=== PATIENT | male | born 1940 | race Caucasian/White ===

== ENCOUNTER 2020-01-21 15:08 | Outpatient (CLI) | payer OTHER, SELFPAY ==
--- NOTE | 2020-01-21 15:14 | CT_ITS ---
WS: [id number] CT LUMBAR SPINE TECHNIQUE: Noncontrast CT of the lumbar spine with coronal and sagittal reformatted images. CLINICAL INFORMATION: LOW BACK PAIN COMPARISON: CT November 20, 2016 DLP: 2026.[address] scans at [facility] use at least one of these dose optimization techniques: automat ed exposure control; mA and/or kV adjustment per patient size (includes targeted exams where dose is matched to clinical indication); or iterative reconstruction. FINDINGS: Lumbar scoliosis. No acute compression. Disc space narrowing worse at L1-2 and L4-5. Vacuum disc phen omenon L4-5. Degenerative disc disease at L4-5 has progressed since November 20, 2016. L1-L2: Disc space narrowing with endplate degenerative changes. Narrowing of the left subarticular re cess. Moderate facet arthropathy. Foramen are patent. L2-L3: Mild annular bulging. Moderate facet arthropathy with mild central canal stenosis. Foramen are patent. L3-L4: Mild disc bulging and osteophytic ridging. Moderate to severe central canal stenosis with impi ngement on the traversing L4 nerve roots bilaterally. Mild left and no significant right foraminal na rrowing. Moderate to advanced facet arthropathy with ligamentum flavum hypertrophy. L4-L5: Mild disc bulging in combination with facet arthropathy and ligament flavum hypertrophy result s in moderate central canal stenosis. Impingement traversing right L5 nerve root. Large right foramin al disc protrusion impinges the exiting L4 nerve root with filling of the right neural foramen. Sever e right foraminal narrowing. Left foramen is patent. Impingement traversing right L5 nerve root. L5-S1: Mild annular bulging with slight effacement of ventral thecal sac. Slight impingement left S1 nerve root. Mild left and no significant right foraminal narrowing. Moderate facet arthropathy. Visualized pelvic bony structures: Normal. Paravertebral soft tissues: Normal. CT/CT lumbar spine wo con* [id number] IMPRESSION: 1. Prominent right L4-5 foraminal protrusion with severe right foraminal narro wing and impingement on exiting right L4 nerve root. Recommend correlation for right L4 nerve root symptoms. Additional impingement traversing L5 nerve root. These findings are new compared to 2017. 2. Moderate to severe central canal stenosis L3-4 due to disc bulging with fac et arthropathy and ligament flavum hypertrophy. This is relatively stable since 2017. 3. Moderate central canal stenosis L4-5. 4. Moderate to advanced facet arthropathy L3-L4 and L4-L5. 5. Left eccentric disc bulging L5-S1 slightly impinges the traversing left S1 nerve root in the subarticular recess. This is slightly progressed since 2017.
== END 2020-01-21 15:09 | disposition home or self-care (01) ==
LOC: RADWPI 15:12
PROVIDERS: Family Provider Family Medicine; PCP Family Medicine; Visit Provider Family Medicine
DX: M51.26 Other intervertebral disc displacement, lumbar region (principal); M48.061 Spinal stenosis, lumbar region without neurogenic claudication; M47.816 Spondylosis without myelopathy or radiculopathy, lumbar region; M51.27 Other intervertebral disc displacement, lumbosacral region
CPT/HCPCS: 72131

== ENCOUNTER → 2020-05-22 15:20 | Outpatient (BNVA) | payer MEDICARE, BC, SELFPAY | PROVIDERS: Family Provider Family Medicine; PCP Family Medicine; Visit Provider Internal Medicine Cardiovascular Disease | DX: I25.5 Ischemic cardiomyopathy (principal); I25.10 Atherosclerotic heart disease of native coronary artery without angina pectoris | CPT/HCPCS: 80048; 83880 ==

== ENCOUNTER → 2021-08-29 10:36 | Outpatient (BNVA) | payer MEDICARE, BC, SELFPAY | PROVIDERS: Family Provider Family Medicine; PCP Family Medicine; Visit Provider Internal Medicine Cardiovascular Disease | DX: I25.5 Ischemic cardiomyopathy (principal); I11.0 Hypertensive heart disease with heart failure; I50.20 Unspecified systolic (congestive) heart failure; I50.33 Acute on chronic diastolic (congestive) heart failure; R06.01 Orthopnea; I48.20 Chronic atrial fibrillation, unspecified; Z95.810 Presence of automatic (implantable) cardiac defibrillator; E78.2 Mixed hyperlipidemia; E11.65 Type 2 diabetes mellitus with hyperglycemia; I25.10 Atherosclerotic heart disease of native coronary artery without angina pectoris | CPT/HCPCS: 80048; 83880; 99214 ==

== ENCOUNTER → 2021-10-18 13:14 | Outpatient (BNVA) | payer OTHER, SELFPAY | PROVIDERS: Family Provider Family Medicine; PCP Family Medicine; Visit Provider Nurse Practitioner Family | DX: I25.5 Ischemic cardiomyopathy (principal); I10 Essential (primary) hypertension | CPT/HCPCS: 36415; 80048; 83880; 99213 ==

== ENCOUNTER → 2021-11-02 10:03 | Outpatient (BNVA) | payer OTHER, SELFPAY | PROVIDERS: Family Provider Family Medicine; PCP Family Medicine; Visit Provider Internal Medicine Cardiovascular Disease | DX: Z45.02 Encounter for adjustment and management of automatic implantable cardiac defibrillator (principal) | CPT/HCPCS: 93284 ==

== ENCOUNTER → 2021-11-06 09:23 | Outpatient (BNVA) | payer OTHER, SELFPAY | PROVIDERS: Family Provider Family Medicine; PCP Family Medicine; Visit Provider Nurse Practitioner Family | DX: I25.5 Ischemic cardiomyopathy (principal) | CPT/HCPCS: 99213; 99214 ==

== ENCOUNTER → 2021-12-03 11:12 | Outpatient (BNVA) | payer OTHER, SELFPAY | PROVIDERS: Family Provider Family Medicine; PCP Family Medicine; Visit Provider Internal Medicine Cardiovascular Disease | DX: I25.10 Atherosclerotic heart disease of native coronary artery without angina pectoris (principal); I25.5 Ischemic cardiomyopathy; I10 Essential (primary) hypertension; I48.20 Chronic atrial fibrillation, unspecified; Z95.810 Presence of automatic (implantable) cardiac defibrillator; E78.2 Mixed hyperlipidemia; E11.65 Type 2 diabetes mellitus with hyperglycemia; Z95.1 Presence of aortocoronary bypass graft; Z79.84 Long term (current) use of oral hypoglycemic drugs | CPT/HCPCS: 99214 ==

== ENCOUNTER → 2022-04-08 09:52 | Outpatient (BNVA) | payer OTHER, SELFPAY | PROVIDERS: Family Provider Family Medicine; PCP Family Medicine; Visit Provider Internal Medicine Cardiovascular Disease | DX: I25.5 Ischemic cardiomyopathy (principal); I25.10 Atherosclerotic heart disease of native coronary artery without angina pectoris; Z95.1 Presence of aortocoronary bypass graft; I10 Essential (primary) hypertension; I48.20 Chronic atrial fibrillation, unspecified; Z79.01 Long term (current) use of anticoagulants; Z95.810 Presence of automatic (implantable) cardiac defibrillator; E78.2 Mixed hyperlipidemia; E11.65 Type 2 diabetes mellitus with hyperglycemia; Z79.84 Long term (current) use of oral hypoglycemic drugs | CPT/HCPCS: 99214 ==

== ENCOUNTER 2022-05-07 13:54 | Outpatient (CLI) | payer OTHER, SELFPAY ==
--- NOTE | 2022-05-07 13:45 | USCV_ITS ---
Roshan Sourav Age: 82 Gender: M : 1940 Exam Date: 05/07/2022 14:43 Ordering Phys: Lorena Madrigal MD ([email or web address]) Technologist: Buzz Hickman Exam Location: [facility] [place] Indication: cardiomyopathy BP: 122 / 70 HR: 61 Rhythm: Sinus Technical Quality: Adequate MEASUREMENTS (Male / Female) Normal Values 2D ECHO LV Diastolic Diameter PLAX 4.2 cm 4.2 - 5.9 / 3.9 - 5.3 cm LV Systolic Diameter PLAX 3.4 cm IVS Diastolic Thickness 0.7 cm 0.6 - 1.0 / 0.6 - 0.9 cm IVS Systolic Thickness 0.5 cm LVPW Diastolic Thickness 0.8 cm 0.6 - 1.0 / 0.6 - 0.9 cm LVPW Systolic Thickness 1.1 cm LVOT Diameter 2.0 cm LV Ejection Fraction 2D Teich 39.3 % LV Ejection Fraction MOD 2C 33.0 % LV Ejection Fraction 2C AL 31.5 % LA Diameter 3.6 cm LA Width 3.5 cm LA Height 5.0 cm RA Width 3.4 cm RA Height 5.2 cm Aorta at Sinotubular Diameter 2.6 cm IVC Diameter 1.7 cm M-MODE Aortic Annulus Diameter 2.9 cm LA Ao Ratio MM 1.4 MV E Point Septal Separation 0.8 cm DOPPLER AV Peak Velocity 90.0 cm/s LVOT Peak Velocity 76.0 cm/s AV Area Cont Eq vti 2.6 cm squared AV Area Cont Eq pk 2.7 cm squared MV Peak Velocity 122.0 cm/s MV Area PHT 7.1 cm squared Mitral E to A Ratio 2.1 MV E' Velocity 38.2 cm/s Mitral E to MV E' Ratio 6.6 Mitral E to LV E' Lateral Ratio 5.7 Mitral E to LV E' Septal Ratio 8.1 TR Peak Velocity 320.5 cm/s TR Peak Gradient 41.1 mmHg TR Mean Velocity 242.4 cm/s TR Mean Gradient 25.8 mmHg TR Velocity Time Integral 84.4 cm Right Atrial Pressure 3.0 mmHg Pulmonary Artery Systolic Pressu 44.1 mmHg PV Peak Velocity 89.3 cm/s RV Acceleration Time 0.1 s RV Ejection Time 0.3 s RV AcT/ET 0.3 FINDINGS Left Ventricle Normal LV size with diminished ejection fraction of 33%. Severe diffuse hypokinesia of the LV apex. Moderate hypokinesia of the mid and apical septum and the anteroseptal segments. Right Ventricle The right ventricle, upper limit of normal size. Slightly diminished right ventricular ejection fraction.catheter/pacemaker wire in the right ventricular cavity. Right Atrium Mildly increased right atrial size. Catheter/pacemaker wire in the right atrial appendage. Left Atrium The left atrium is normal in size. Mitral Valve Thickened mitral valve. Trace mitral valve regurgitation. Aortic Valve Thickened aortic valve. Trace aortic valve regurgitation. Tricuspid Valve Moderate tricuspid valve regurgitation. Estimated pulmonary artery peak systolic pressure of 44 mmHg Pulmonic Valve Pulmonic valve not well visualized. Pericardium No pericardial effusion. Aorta Normal ascending aorta dimension. IVC Normal inferior vena cava. CONCLUSIONS Normal LV size with diminished ejection fraction of 33%. Multiple wall motion normalities as mentioned above. Thickened mitral valve. Trace mitral valve regurgitation. Thickened aortic valve. Trace aortic valve regurgitation. Moderate tricuspid valve regurgitation. Estimated pulmonary artery peak systolic pressure of 44 mmHg. There is no pericardial effusion. Pacemaker/ICD wire was noted in the right atrium and right ventricle Compared to the study from 09/17/2018, there is some improvement in the LV ejection fraction Dr Lorena Madrigal MD FAC (Electronically Signed) Final Date: 09 May 2022 00:01 S
== END 2022-05-07 13:55 | disposition home or self-care (01) ==
LOC: RAD 13:59
PROVIDERS: PCP Family Medicine; Visit Provider Internal Medicine Cardiovascular Disease
DX: I25.5 Ischemic cardiomyopathy (principal); I42.0 Dilated cardiomyopathy; R06.09 Other forms of dyspnea; Z95.0 Presence of cardiac pacemaker
CPT/HCPCS: 93306

== ENCOUNTER 2022-05-27 10:54 | Oncology outpatient (recurring) (ONCR) | payer OTHER, SELFPAY ==
[2022-05-27 12:37] LABS: Basophils % 0.4 %; Eosinophils # 0.1 10^3/uL (0.0-0.8); Eosinophils % 1.8 %; Hematocrit 30.1 % (42.0-52.0); Hemoglobin 10.3 g/dL (11.7-16.6); Lymphocytes # 1.1 10^3/uL (0.8-4.8); Lymphocytes % 40.1 %; Mean Corpuscular HGB Conc 34.2 g/dL (30.0-36.0); Mean Corpuscular Hemoglobin 34.6 pg (28.0-34.0); Mean Platelet Volume 9.7 fL (7.4-10.4); Monocytes # 0.2 10^3/uL (0.2-0.9); Monocytes % 5.4 %; Neutrophils # 1.46 10^3/uL (1.8-7.7); Neutrophils % 52.3 %; Nucleated Red Blood Cells % 0 %; Platelet Count 34 10^3/cmm (130-400); Red Blood Count 2.98 10^6/uL (4.1-5.3); Red Cell Distribution Width 13.9 % (12.1-15.1); White Blood Count 2.8 10^3/uL (4.0-10.0)
[2022-05-27 12:42] LABS: LAB Peripheral Smear Sent for Review
[2022-05-27 13:02] LABS: Alanine Aminotransferase 9 U/L (0-41); Albumin Level 4.8 g/dL (3.5-5.2); Alkaline Phosphatase 53 U/L (40-130); Aspartate Amino Transferase 18 U/L (0-40); Blood Urea Nitrogen 11 mg/dL (8-23); Calcium 10.2 mg/dL (8.5-10.5); Carbon Dioxide 27 mmol/L (22-29); Chloride 98 mmol/L (98-107); Ferritin 248 ng/mL (30-400); Globulin 3.1 g/dL (1.3-4.6); Glucose 107 mg/dL (65-115); Iron 125 ug/dL (59-158); Lactate Dehydrogenase 184 U/L (135-225); Osmolality Calculated 276 mOsm/kg (285-295); Percent Saturation 43.1 % (20-50); Sodium 133 mmol/L (136-145); Total Bilirubin 0.4 mg/dL (0.15-1.2); Total Iron Binding Capacity 290 mcg/dl; Total Protein 7.9 g/dL (6.6-8.7); Unsaturated Iron Binding 165 ug/dL (112-347)
[2022-05-27 13:16] LABS: Vitamin B12 268 pg/mL (232-1245)
[2022-05-27 13:55] LABS: Folate Level > 20.0 ng/mL (4.5-32.2)
[2022-05-28 12:25] LABS: PROTEIN, TOTAL 7.6 g/dL (6.1-8.1)
[2022-05-28 12:50] LABS: KAPPA LIGHT CHAIN, FREE, SERUM 25.8 mg/L (3.3-19.4); KAPPA/LAMBDA LIGHT CHAINS FREE 1.32 (0.26-1.65); LAMBDA LIGHT CHAIN, FREE, SERU 19.6 mg/L (5.7-26.3)
[2022-05-28 15:19] LABS: ALBUMIN 4.6 g/dL (3.8-4.8); ALPHA 1 GLOBULIN 0.3 g/dL (0.2-0.3); ALPHA 2 GLOBULIN 0.8 g/dL (0.5-0.9); BETA 1 GLOBULIN 0.5 g/dL (0.4-0.6); BETA 2 GLOBULIN 0.5 g/dL (0.2-0.5)
[2022-05-30 19:29] LABS: Methylmalonic Acid 227 nmol/L (87-318)
== END 2022-06-15 23:59 | disposition home or self-care (01) ==
PROVIDERS: PCP Family Medicine; Visit Provider Internal Medicine Medical Oncology
DX: D64.9 Anemia, unspecified (principal); Z86.010 Personal history of colon polyps; Z87.11 Personal history of peptic ulcer disease; K59.09 Other constipation; D61.818 Other pancytopenia; R35.0 Frequency of micturition; R35.1 Nocturia
CPT/HCPCS: 36415; 80053; 82607; 82728; 82746; 83540; 83550; 83615; 83883; 83921; 84155; 84165; 85025; 99205

== ENCOUNTER → 2022-06-21 09:15 | Outpatient (BNVA) | payer OTHER, SELFPAY | PROVIDERS: PCP Family Medicine; Visit Provider Internal Medicine Cardiovascular Disease | DX: Z45.02 Encounter for adjustment and management of automatic implantable cardiac defibrillator (principal) | CPT/HCPCS: 93284 ==

== ENCOUNTER 2022-06-24 10:22 | Day surgery (SDC) | payer OTHER, SELFPAY ==
[2022-06-20 08:45] VITALS: BMI 24.0
[2022-06-24 10:46] VITALS: BP 161/79; PULSE 79; RESP 18; TEMP 36.1; O2SAT 99
[2022-06-24] MEDS: sodium chloride 0.9% 1,000 ML 30 ML IV (10:51)
[2022-06-24 10:58] LABS: Glucose Point of Care 129 mg/dL (70-110)
[2022-06-24 11:03] LABS: Eosinophils % 1.7 %; Hematocrit 28.6 % (42.0-52.0); Hemoglobin 9.7 g/dL (11.7-16.6); Lymphocytes # 0.9 10^3/uL (0.8-4.8); Lymphocytes % 39.4 %; Mean Corpuscular HGB Conc 33.9 g/dL (30.0-36.0); Mean Corpuscular Hemoglobin 35.9 pg (28.0-34.0); Mean Corpuscular Volume 105.9 fl (80-94); Mean Platelet Volume 9.9 fL (7.4-10.4); Monocytes # 0.2 10^3/uL (0.2-0.9); Monocytes % 6.4 %; Neutrophils # 1.24 10^3/uL (1.8-7.7); Neutrophils % 52.5 %; Nucleated Red Blood Cells % 0 %; Platelet Count 31 10^3/cmm (130-400); Red Cell Distribution Width 14.4 % (12.1-15.1); White Blood Count 2.4 10^3/uL (4.0-10.0)
--- NOTE | 2022-06-24 11:09 | P.ANESASSM_ITS ---
Pre-Anesthetic Assessment Height/Weight: Height 1.8 m Weight 78.018 kg Temp Pulse Resp BP Pulse Ox O2 Del Method 97.0 F L 79 18 161/79 99 06/24/22 10:46 06/24/22 10:46 06/24/22 10:46 06/24/22 10:46 06/24/22 10:46 06/24/22 10:46 Operation Date: 06/24/22 12:00 Proposed Procedures p Bone Marrow Biospy With Aspiration(Not Applicable) - Chhaya Strauss MD Familial anesthetic complications: None Last intake: Intake Last Liquid Date 06/23/22 Last Liquid Time 20:00 Last Solid Date 06/23/22 Last Solid Time 20:00 Social Alcohol (3-4 oz red wine nightly) quit smoking Airway Mallampati: Class II Dentition: other (no teeth) Pulmonary pulm HTN 44 mgHg, down from 81 mmHg CV/HEM Atrial Fibrillation, Anemia, Coronary Artery Disease (cabg), Hypertension and Myocardial Infarction ischemic cardiomyopathy EF 33% on 05/07 echo Pacer/defibrillator Metabolic Diabetes Mellitus and Hyperlipidemia leukopenia, thrombocytopenia Musc/skel Osteoarthritis/DJD Anesthetic Plan ASA status: 4 Anesthesia: MAC Risk of > 500 ml blood loss (7ml/kg in children): No Medications/Allergies Home Medications Medication Instructions Recorded Confirmed Last Taken Type aspirin 81 mg tablet,delayed 81 mg PO DAILY 11/17/19 06/24/22 06/19/22 History release (Adult Low Dose Aspirin) cholecalciferol (vitamin D3) 50 50 mcg PO DAILY 11/17/19 06/24/22 06/22/22 History mcg (2,000 unit) capsule dorzolamide 22.3 mg-timolol 6.8 1 drop ophthalmic (eye) BID 11/17/19 06/24/22 06/22/22 History mg/mL eye drops magnesium oxide 250 mg PO DAILY 11/17/19 06/24/22 06/22/22 History multivitamin 1 tab PO DAILY 11/17/19 06/24/22 06/22/22 History omega-3 fatty acids 1,000 mg 1,000 mg PO DAILY 11/17/19 06/24/22 06/22/22 History capsule (Fish Oil Concentrate) pantoprazole 40 mg tablet,delayed 40 mg PO DAILY 11/17/19 06/24/22 06/22/22 History release travoprost 0.004 % eye drops 1 drp ophthalmic (eye) DAILY 11/17/19 06/24/22 06/22/22 History (Travatan Z) garlic 1,000 mg capsule (garlic 1,000 mg PO DAILY 05/22/20 06/24/22 06/22/22 History oil) lutein 20 mg capsule 20 mg PO DAILY 05/22/20 06/24/22 06/22/22 History metoprolol tartrate 25 mg tablet 12.5 mg PO DAILY 05/22/20 06/24/22 06/22/22 History hydrocodone 5 mg-acetaminophen 325 1 tab PO BID PRN Pain 07/24/20 06/24/22 06/22/22 History mg tablet ([place]) meloxicam 15 mg tablet 15 mg PO DAILY 07/24/20 06/24/22 06/22/22 History metformin 500 mg tablet 500 mg PO DAILY 07/24/20 06/24/22 06/22/22 History sertraline 100 mg tablet 100 mg PO DAILY 07/24/20 06/24/22 06/22/22 History potassium gluconate 600 mg (99 mg) 600 mg PO DAILY 01/22/21 06/24/22 06/22/22 History tablet spironolactone 25 mg tablet 25 mg PO DAILY #90 tabs 12/31/21 06/24/22 06/22/22 Rx donepezil 5 mg tablet 2.5 mg PO DAILY 05/27/22 06/24/22 06/22/22 History sacubitril 24 mg-valsartan 26 mg 1 tab PO DAILY 05/27/22 06/24/22 06/22/22 History tablet (Entresto) simvastatin 5 mg tablet 5 mg PO DAILY 05/27/22 06/24/22 06/22/22 History Allergies Allergy/AdvReac Type Severity Reaction Status Date / Time atorvastatin AdvReac Unknown muscle Verified 06/24/22 10:45 cramps rivaroxaban [From Xarelto] AdvReac Unknown GI bleed Verified 06/24/22 10:45 Current Medications Generic Name Dose Route Start Last Admin Trade Name Freq PRN Reason Stop Dose Admin Sodium Chloride 1,000 mls @ 30 mls/hr 06/24/22 10:45 06/24/22 10:51 Sodium Chloride 0.9% IV 06/25/22 10:44 30 mls/hr .Q24H GALLITO Administration PFSH Anesthesia Medical History (Updated 05/27/22 @ 18:45 by Amadou Baker MD) Atrial fibrillation CAD (coronary artery disease) Cardiomyopathy Chronic atrial fibrillation Degenerative arthritis Degenerative joint disease of spine Dementia Depression Fibromyalgia Glaucoma Hx of colonic polyps Hx of myocardial infarction Hyperlipidemia Hypertension Pulmonary hypertension Type 2 diabetes mellitus Surgical History (Updated 05/27/22 @ 18:33 by Amadou Baker MD) Biventricular ICD (implantable cardioverter-defibrillator) in place History of open sigmoidectomy Hx of CABG Hx of cholecystectomy S/P cataract extraction and insertion of intraocular lens Family History Brother CAD (coronary artery disease) Family/Other Diabetes Other Hypertension Denies family history of Clotting disorder Dementia Chronic kidney disease (CKD) Suicide Anesthesia complication Bleeding disorder Lung disease Cancer Stroke Social History Smoking and tobacco status: never smoked Alcohol intake: never Data Anesthesia 06/24/22 10:58 Short CBC 06/24/22 Range/Units 10:58 WBC 2.4 L (4.0-10.0) 10^3/uL Hgb 9.7 L (11.7-16.6) g/dL Hct 28.6 L (42.0-52.0) % MCV 105.9 H (80-94) fl Plt Count 31 L (130-400) 10^3/cmm Neut % (Auto) 52.5 % Neut # (Auto) 1.24 L (1.8-7.7) 10^3/uL Cardiac Studies: Echocardiogram 05/07/22
--- NOTE | 2022-06-24 12:10 | W.PM.OPSUD ---
Surgery/Procedure H&P Update DATE OF PROCEDURE: June 24, 2022 DATE H&P PERFORMED: 05/27/22 CHANGES TO PREVIOUS DOCUMENTATION: Patient seen and examined, no new symptoms or no obvious changes since his last visit to the clinic PRIMARY INDICATION FOR PROCEDURE: Pancytopenia PLANNED PROCEDURE: Operation Date: 06/24/22 12:00 Proposed Procedures p Bone Marrow Biospy With Aspiration(Not Applicable) - Chhaya Strauss MD
--- NOTE | 2022-06-24 12:35 | P.PCN_ITS ---
Bone Marrow Biopsy Bone Marrow Biopsy: I was consulted by [] office regarding bone marrow biopsy on [Sourav hubbard]. Briefly, the patient is a [82] year old [Male] with [Pancytopenia]. In the Outpatient Services Department, with nursing staff and laboratory technologists in attendance, the procedure was discussed with the patient. Appropriate consent form had been signed. Appropriate alternatives, benefits and risks of procedure were discussed with the patient and he was pre- operatively assessed with a history and physical by myself and cleared for the biopsy procedure. The patient did request IV sedation and that was provided by the Anesthesia Department. Under aseptic condition right posterior iliac area was cleaned and prepped, local anesthesia was given, about 15 cc of bone marrow aspirate and core biopsy was obtained, hemostasis was obtained patient tolerated procedure well, specimen was sent for routine histopathology, cytogenetics/flow cytometry and FISH MDS and heme next generation. Postprocedure nursing instructions were given Thank you for allowing me to participate in this patient's care and diagnosis. Coding Level of Care Code Acute Associate Artistic Director for Chg Fwd History Problem Focused Exam Problem Focused Medical Decision Making Straight Forward
[2022-06-24 12:38] VITALS: BP 110/60; PULSE 70; RESP 16; TEMP 36.1; O2SAT 100
[2022-06-24 13:31] VITALS: BP 122/73; PULSE 76; RESP 18; O2SAT 98
--- NOTE | 2022-06-24 13:40 | ANE.PACU2 ---
Inpatient post-anesthesia follow up: Airway intact: Yes Vital signs: Temperature 97 F Pulse Rate 76 Respiratory Rate 18 Blood Pressure 122/73 Pulse Oximetry 98 Oxygen Delivery Me thod Room Air Oxygen Flow Rate Fraction of Inspir ed Oxygen Hydration adequate: Yes Nausea and vomiting: No Pain level: 1 Mental status: Baseline
[2022-06-25 16:12] LABS: Leukemia Profile (BBPL) See Report; Lymphoma Profile (BBPL) See Report
[2022-07-02 16:16] LABS: MDS Panel (BBPL) See Report
[2022-07-03 11:25] LABS: Chromosome Analysis BBPL See Report
== END 2022-06-24 13:45 | disposition home or self-care (01) ==
PROVIDERS: PCP Family Medicine; Visit Provider Internal Medicine Hematology & Oncology
PROC: 07DT3ZX Extraction of Bone Marrow, Percutaneous Approach, Diagnostic (ICD-10-PCS; CPT 38222; principal; 2022-06-24 12:00)
DX: D61.818 Other pancytopenia (principal); I48.91 Unspecified atrial fibrillation; I25.10 Atherosclerotic heart disease of native coronary artery without angina pectoris; Z95.1 Presence of aortocoronary bypass graft; I10 Essential (primary) hypertension; I25.2 Old myocardial infarction; Z95.0 Presence of cardiac pacemaker; Z79.82 Long term (current) use of aspirin; E11.9 Type 2 diabetes mellitus without complications; E78.5 Hyperlipidemia, unspecified
CPT/HCPCS: 36415; 36416; 38222; 82962; 85025; 88184; 88185; 88237; 88264; 88291; 88305; 88311; 88367; 88374; J2704; J3010; J7030

== ENCOUNTER 2022-07-15 09:59 | Oncology outpatient (recurring) (ONCR) | payer OTHER, SELFPAY | END 2022-07-16 23:59 | disposition home or self-care (01) | LOC: ONCMED 09:59 | PROVIDERS: PCP Family Medicine; Visit Provider Internal Medicine Medical Oncology | DX: D46.22 Refractory anemia with excess of blasts 2 (principal) | CPT/HCPCS: 99215 ==

== ENCOUNTER → 2022-07-19 08:37 | Outpatient (BNVA) | payer OTHER, SELFPAY | PROVIDERS: PCP Family Medicine; Visit Provider Internal Medicine Cardiovascular Disease | DX: Z45.02 Encounter for adjustment and management of automatic implantable cardiac defibrillator (principal) | CPT/HCPCS: 93284 ==

== ENCOUNTER → 2022-08-19 08:12 | Outpatient (BNVA) | payer OTHER, SELFPAY | PROVIDERS: PCP Family Medicine; Visit Provider Nurse Practitioner Family | DX: D46.22 Refractory anemia with excess of blasts 2 (principal) | CPT/HCPCS: 99214 ==

== ENCOUNTER → 2022-08-30 08:31 | Outpatient (BNVA) | payer OTHER, SELFPAY | PROVIDERS: PCP Family Medicine; Visit Provider Nurse Practitioner | DX: D46.22 Refractory anemia with excess of blasts 2 (principal) | CPT/HCPCS: 99214 ==

== ENCOUNTER 2022-09-11 07:41 | Inpatient (IN) | payer OTHER, SELFPAY ==
[2022-09-11] VITALS (25 sets, daily range): BP systolic 115–149; BP diastolic 55–76; PULSE 70–96; RESP 13–23; TEMP 36.2–36.8; O2SAT 84–98; BMI 23.0
--- NOTE | 2022-09-11 07:46 | XR_ITS ---
WS: [id number] Exam: XR chest 1V portable [id number] Date/Time of Exam: 09/11/2022 7:55 AM Reason For Exam: dyspnea/cough Comparison 12/10/2013. There are diffuse airspace and interstitial infiltrates throughout both lungs. Mild cardiac enlargeme nt. No pneumothorax or pleural effusion. A permanent cardiac pacer superimposes the left chest. Signs of previous CABG surgery. The mediastinum is normal in contour. Bony structures are intact. Advanced DJD of the right shoulder. XR/XR chest 1V portable [id number] IMPRESSION: 1. Diffuse airspace and interstitial infiltrates throughout both lung coffman. T his probably represents pneumonia however acute pulmonary edema could have this appearance. 2. Mild cardiac enlargement.
[2022-09-11 08:05] LABS: Hematocrit 24.3 % (42.0-52.0); Lymphocytes # 0.2 10^3/uL (0.8-4.8); Lymphocytes % 63.6 %; Mean Corpuscular HGB Conc 32.9 g/dL (30.0-36.0); Mean Corpuscular Hemoglobin 32.9 pg (28.0-34.0); Mean Platelet Volume 9.8 fL (7.4-10.4); Monocytes % 12.1 %; Neutrophils % 24.3 %; Nucleated Red Blood Cells % 0 %; Platelet Count 153 10^3/cmm (130-400); Red Blood Count 2.43 10^6/uL (4.1-5.3); Red Cell Distribution Width 16.8 % (12.1-15.1)
--- NOTE | 2022-09-11 08:06 | ECG_ITS ---
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 Measurements Intervals [place] Rate: 107 P: 0 ID: 0 QRS: -77 QRSD: 141 T: 100 QT: 428 QTc: 573 Interpretive Statements ELECTRONIC VENTRICULAR PACEMAKER ABNORMAL RHYTHM ECG No previous ECG available for comparison Possible underlying atrial flutter Electronically Signed On 09-11-2022 23:52:13 CDT by Lorena Madrigal M.D. [email or web address]
--- NOTE | 2022-09-11 08:26 | ED_ITS ---
HPI - Fever General: Chief Complaint: ER Hold Stated Complaint: FEVER/ DEHYDRATION Time Seen by Provider: 09/11/22 07:43 Source: patient Mode of arrival: EMS History of Present Illness: 82-year-old male with a history of myelodysplastic with blasts presents to the emergency room reporting having had a fever this morning at home. He has been seen [facility] they are planning on restarting some treatments recently his ANC has been as low as 200 and he has been on ciprofloxacin empirically. He did receive a single hydrocodone tablet this morning prior to coming in when he arrived here he is afebrile. He denies any abdominal pain chest pain or shortness of breath no dysuria urgency or frequency. He has not had any diarrhea. MD elicited complaint: fever Exacerbating factors: nothing Relieving factors: nothing Associated symptoms: Reports chills; Deny abdominal pain, flank pain, chest pain, confusion, cough, diarrhea, dysuria, extremity pain, headache(s), myalgias, nasal congestion, nausea, night sweats, rash, rhinorrhea, short of breath, sinus pain, stiffness, sore throat, vaginal discharge, vomiting or weight loss Treatments prior to arrival fever: none Review of Systems Const: Reports: fever(s), chills, fatigue and malaise; Denies: night sweats ENMT: Denies: nasal congestion or sinus pain Card: Denies: chest pain, palpitations, irregular heart rhythm or edema Resp: Denies: dyspnea, productive cough or non-productive cough GI: Denies: abdominal pain, nausea, vomiting or diarrhea : Denies: flank pain, dysuria, urinary frequency or urinary urgency Musc: Denies: extremity pain Skin/Breast: Denies: rash or pruritus Neuro: Denies: headache(s) or confusion PFS ED PFSH: Medical History Atrial fibrillation CAD (coronary artery disease) Cardiomyopathy Chronic atrial fibrillation Degenerative arthritis Degenerative joint disease of spine Dementia Depression Fibromyalgia Glaucoma Hx of colonic polyps Hx of myocardial infarction Hyperlipidemia Hypertension Myelodysplastic syndrome Pulmonary hypertension Type 2 diabetes mellitus Surgical History Biventricular ICD (implantable cardioverter-defibrillator) in place History of open sigmoidectomy Hx of CABG Hx of cholecystectomy S/P cataract extraction and insertion of intraocular lens Family History Brother CAD (coronary artery disease) Family/Other Diabetes Other Hypertension Denies family history of Clotting disorder Dementia Chronic kidney disease (CKD) Suicide Anesthesia complication Bleeding disorder Lung disease Cancer Stroke Social History Smoking and tobacco status: never smoked Alcohol intake: never Physical Exam Const: GENERAL APPEARANCE: cooperative and comfortable ORIENTATION/CONSCIOUSNESS: Yes awake, Yes oriented to person, Yes oriented to place and Yes oriented to time HENMT: COMMON NORMALS: normocephalic, atraumatic and hearing grossly normal bilaterally HEAD & SCALP: normocephalic and atraumatic Resp: COMMON NORMALS: normal respiratory effort, No retractions, No use of accessory muscles and clear to auscultation bilaterally AUSCULTATION: clear to auscultation bilaterally Cardio: COMMON NORMALS: regular rate, regular rhythm and No murmurs present (Cardio) RATE: regular rate RHYTHM: regular rhythm GI: COMMON NORMALS: Soft to palpation and No hepatosplenomegaly present AUS CULTATION: Yes normoactive bowel sounds PALPATION: Yes Soft to palpation, No Tenderness to palpation present (GI), No Guarding due to palpation present (GI) and Yes No hepatosplenomegaly present Extremity: COMMON NORMALS: normal to inspection, capillary refill normal, no clubbing, cyanosis or edema, no calf tenderness and no pedal edema Neuro: SENSORIUM/ORIENTATION: Yes oriented to person, Yes oriented to place and Yes oriented to time Skin: COMMON NORMALS: no rashes or lesions noted GENERAL SKIN EXAM: no rashes or lesions noted Course Vital Signs: Vital signs: Vital Signs Temperature 98.0 F 09/11/22 12:00 Pulse Rate 70 09/11/22 12:00 Respiratory Rate 17 09/11/22 12:00 Blood Pressure 126/57 09/11/22 12:00 Pulse Oximetry 98 09/11/22 12:00 Oxygen Delivery Me thod 09/11/22 12:34 MDM - Fever Medical Decision Making Mild dysplastic syndrome with concern for conversion to leukemia. Reviewing oncology notes Dr. Baker had indicated there really was not much else that we did not think he be a candidate for any kind other treatments he is more neutropenic today than he was he is running a fever looks like he may have an infiltrate now. Discussed with Dr. La who also consulted Dr. Howard Baker. At this point will admit with Abby Pedraza will add antifungals. Patient room prefers to be Do Not Recussitate. Orders written for admission. Medical Records I reviewed the patient's medical records. Lab Data I reviewed the patient's lab results. 09/11/22 07:32 Radiology Impressions Chest X-Ray 09/11/22 07:46 IMPRESSION: 1. Diffuse airspace and interstitial infiltrates throughout both lung coffman. This probably represents pneumonia however acute pulmonary edema could have this appearance. 2. Mild cardiac enlargement. Laboratory Results WBC 0.3 10^3/uL (4.0-10.0) L* 09/11/22 07:32 RBC 2.43 10^6/uL (4.1-5.3) L 09/11/22 07:32 Hgb 8.0 g/dL (11.7-16.6) L 09/11/22 07:32 Hct 24.3 % (42.0-52.0) L 09/11/22 07:32 MCV 100.0 fl (80-94) H 09/11/22 07:32 MCH 32.9 pg (28.0-34.0) 09/11/22 07:32 MCHC 32.9 g/dL (30.0-36.0) 09/11/22 07:32 RDW 16.8 % (12.1-15.1) H 09/11/22 07:32 Plt Count 153 10^3/cmm (130-400) 09/11/22 07:32 MPV 9.8 fL (7.4-10.4) 09/11/22 07:32 Neut % (Auto) 24.3 % 09/11/22 07:32 Lymph % (Auto) 63.6 % 09/11/22 07:32 Stark % (Auto) 12.1 % 09/11/22 07:32 Eos % (Auto) 0.0 % 09/11/22 07:32 Baso % (Auto) 0.0 % 09/11/22 07:32 Neut # (Auto) 0.08 10^3/uL (1.8-7.7) L* 09/11/22 07:32 Lymph # (Auto) 0.2 10^3/uL (0.8-4.8) L 09/11/22 07:32 Stark # (Auto) 0.0 10^3/uL (0.2-0.9) L 09/11/22 07:32 Eos # (Auto) 0.0 10^3/uL (0.0-0.8) 09/11/22 07:32 Baso # (Auto) 0.0 10^3/uL (0.0-0.1) 09/11/22 07:32 Nucleated RBC % (auto) 0 % 09/11/22 07:32 Nucleated RBCs # 0.0 /100WBC 09/11/22 07:32 Sodium 139 mmol/L (136-145) 09/11/22 07:32 Potassium 3.2 mmol/L (3.5-5.1) L 09/11/22 07:32 Chloride 102 mmol/L (98-107) 09/11/22 07:32 Carbon Dioxide 23 mmol/L (22-29) 09/11/22 07:32 Anion Gap 17.2 (5-19) 09/11/22 07:32 BUN 21 mg/dL (8-23) 09/11/22 07:32 Creatinine 0.7 mg/dL (0.7-1.2) 09/11/22 07:32 GFR Calculation Not Reportable 09/11/22 07:32 Glucose 174 mg/dL (65-115) H 09/11/22 07:32 Calculated Osmolality 295 mOsm/kg (285-295) 09/11/22 07:32 Calcium 9.3 mg/dL (8.5-10.5) 09/11/22 07:32 Magnesium 1.9 mg/dL (1.7-2.3) 09/11/22 07:32 Total Bilirubin 0.5 mg/dL (0.15-1.2) 09/11/22 07:32 AST 25 U/L (0-40) 09/11/22 07:32 ALT 17 U/L (0-41) 09/11/22 07:32 Alkaline Phosphatase 53 U/L (40-130) 09/11/22 07:32 Total Protein 6.8 g/dL (6.6-8.7) 09/11/22 07:32 Albumin 3.3 g/dL (3.5-5.2) L 09/11/22 07:32 Globulin 3.5 g/dL (1.3-4.6) 09/11/22 07:32 TSH 0.53 uIU/mL (0.27-4.20) 09/11/22 07:32 Coronavirus 229E (PCR) Not detected (NOT DETECT) 09/11/22 10:46 Influenza Type A Ag negative (Negative) 09/11/22 10:46 Influenza Type B Ag negative (Negative) 09/11/22 10:46 SARS-CoV-2 (PCR) Not detected (NOT DETECT) 09/11/22 10:46 Discharge Plan Discharge Patient Disposition: Admitted As Inpatient Admit Provider: Nitish Pedraza Clinical Impression: Pneumonia, Anemia, Pancytopenia, Diabetes, Myelodysplastic syndrome with excess blasts-2, Fever and neutropenia Condition: Stable Coding Level of Care Code ED Principal Cyber Engineer for Tiffany Arce
[2022-09-11 08:31] LABS: Alanine Aminotransferase 17 U/L (0-41); Albumin Level 3.3 g/dL (3.5-5.2); Alkaline Phosphatase 53 U/L (40-130); Anion Gap 17.2 (5-19); Aspartate Amino Transferase 25 U/L (0-40); Blood Urea Nitrogen 21 mg/dL (8-23); Calcium 9.3 mg/dL (8.5-10.5); Carbon Dioxide 23 mmol/L (22-29); Chloride 102 mmol/L (98-107); Globulin 3.5 g/dL (1.3-4.6); Glucose 174 mg/dL (65-115); Osmolality Calculated 295 mOsm/kg (285-295); Potassium 3.2 mmol/L (3.5-5.1); Sodium 139 mmol/L (136-145); Total Bilirubin 0.5 mg/dL (0.15-1.2); Total Protein 6.8 g/dL (6.6-8.7)
[2022-09-11 08:35] LABS: Neutrophils # 0.08 10^3/uL (1.8-7.7); White Blood Count 0.3 10^3/uL (4.0-10.0)
[2022-09-11 08:37] LABS: Slide Review Slide Review Perform
[2022-09-11] MEDS: vancomycin 1,000 MG in sodium chloride 0.9% 250 ML 250 MG IV (08:56)
--- NOTE | 2022-09-11 09:39 | PC.PHAR ---
pt and pts verified pts medication-pts states the pt is not taking venetoclax right now-pts states the pt is taking the cipro 500mg bid dose at the moment-pts states the pt is taking the medications entered faxed [facility] to get med list-notes are made in the pharmacy comments
[2022-09-11] MEDS: potassium chloride ER 20 mEq Tablet 40 MEQ PO (10:05)
[2022-09-11] MEDS: cefTAZidime 1,000 MG in sodium chloride 0.9% (plus) 50 ML 150 MG IV (10:08)
--- NOTE | 2022-09-11 10:16 | PM.HP ---
Providers/Chief Complaint Primary Care Provider: Mari Avitia MD Chief Complaint: FEVER/ DEHYDRATION History of Present Illness Sourav Islas Sr is a 82 year old male with underlying MDS with unfavorable characteristics who recently underwent treatment on August 19 with initiation of azacitidine and venetoclax presented to the emergency department with generalized weakness, temperature of 100.5. He had been instructed by oncology should the temperature reached this degree with his pancytopenia that he might have systemic infection. He has not really been coughing. He reports he feels occasional shortness of breath. No vomiting or diarrhea. No chest pain or abdominal pain. No headache or neck pain. Reports he has not been eating or drinking as well as he just does not feel like it. He has been on Cipro and acyclovir prophylactically. He does not have a port. Additional history was given by his . Review of Systems General: Reports: 10 or more systems reviewed and unremarkable except in HPI and below Card: Denies: chest pain Resp: Reports: dyspnea; Denies: productive cough or non-productive cough GI: Denies: abdominal pain, nausea, vomiting, hematochezia or melena Medications/Allergies Home Medications Medication Instructions Recorded Confirmed Last Taken Type dorzolamide 22.3 mg-timolol 6.8 1 drop ophthalmic (eye) BID 11/17/19 09/11/22 06/22/22 History mg/mL eye drops magnesium oxide 250 mg PO QPM 11/17/19 09/11/22 06/22/22 History multivitamin 1 tab PO QPM 11/17/19 09/11/22 06/22/22 History pantoprazole 40 mg tablet,delayed 40 mg PO QAM 11/17/19 09/11/22 06/22/22 History release travoprost 0.004 % eye drops 1 drp ophthalmic (eye) BEDTIME 11/17/19 09/11/22 06/22/22 History (Travatan Z) garlic 1,000 mg capsule (garlic 1,000 mg PO QPM 05/22/20 09/11/22 06/22/22 History oil) metoprolol tartrate 25 mg tablet 12.5 mg PO QPM 05/22/20 09/11/22 06/22/22 History meloxicam 15 mg tablet 15 mg PO DAILY PRN Pain 07/24/20 09/11/22 06/22/22 History sertraline 100 mg tablet 100 mg PO QAM 07/24/20 09/11/22 06/22/22 History donepezil 5 mg tablet 5 mg PO QPM 05/27/22 09/11/22 06/22/22 History sacubitril 24 mg-valsartan 26 mg 1 tab PO QAM 05/27/22 09/11/22 06/22/22 History tablet (Entresto) acyclovir 400 mg tablet 400 mg PO BID #60 tabs 08/19/22 09/11/22 Unknown Rx lorazepam 1 mg tablet 0.5 - 1 mg PO Q6H PRN Severe 08/19/22 09/11/22 Unknown Rx Nausea #30 tabs hydrocodone 7.5 mg-acetaminophen 2 tab PO Q4H PRN pain 20 days #60 09/02/22 09/11/22 09/11/22 06:30 Rx 325 mg tablet tabs 2 tabs ondansetron HCl 4 mg tablet 4 mg PO Q6H PRN nausea and 09/09/22 09/11/22 Unknown Rx vomiting #30 tabs venetoclax 100 mg tablet See Rx Instructions PO DAILY #51 09/10/22 09/11/22 Unknown Rx tabs cholecalciferol (vitamin D3) 125 125 mcg PO QPM 09/11/22 09/11/22 Unknown History mcg (5,000 unit) tablet (Vitamin D3) ciprofloxacin HCl 500 mg tablet 500 mg PO BID 09/11/22 09/11/22 Unknown History diphenhydramine HCl 25 mg capsule 25 - 50 mg PO .EVERY 4-6 HOURS PRN 09/11/22 09/11/22 Unknown History (Benadryl) Itching lutein 20 mg-zeaxanthin 1,000 mcg 1 cap PO DAILY@12 09/11/22 09/11/22 Unknown History capsule metformin 1,000 mg tablet 500 mg PO QAM 09/11/22 09/11/22 Unknown History omega-3 fatty acids 1,000 mg 1,000 mg PO QPM 09/11/22 09/11/22 Unknown History capsule potassium gluconate 595 mg (99 mg) 99 mg PO DAILY@12 09/11/22 09/11/22 Unknown History tablet simvastatin 10 mg tablet (Zocor) 5 mg PO QPM 09/11/22 09/11/22 Unknown History spironolactone 25 mg tablet 25 mg PO QAM 09/11/22 09/11/22 Unknown History Allergies Allergy/AdvReac Type Severity Reaction Status Date / Time prochlorperazine Allergy ADR-Itching Verified 09/11/22 09:26 [From Compazine] atorvastatin AdvReac Unknown muscle Verified 09/11/22 09:26 cramps rivaroxaban [From Xarelto] AdvReac Unknown GI bleed Verified 09/11/22 09:26 PFSH Acute PFSH: Medical History Atrial fibrillation CAD (coronary artery disease) Cardiomyopathy Chronic atrial fibrillation Degenerative arthritis Degenerative joint disease of spine Dementia Depression Fibromyalgia Glaucoma Hx of colonic polyps Hx of myocardial infarction Hyperlipidemia Hypertension Myelodysplastic syndrome Pulmonary hypertension Type 2 diabetes mellitus Surgical History Biventricular ICD (implantable cardioverter-defibrillator) in place History of open sigmoidectomy Hx of CABG Hx of cholecystectomy S/P cataract extraction and insertion of intraocular lens Family History Brother CAD (coronary artery disease) Family/Other Diabetes Other Hypertension Denies family history of Clotting disorder Dementia Chronic kidney disease (CKD) Suicide Anesthesia complication Bleeding disorder Lung disease Cancer Stroke Social History Smoking and tobacco status: never smoked Alcohol intake: never Vitals/I&O/Wt Last Vital Signs Temp 97.1 F L 09/11/22 07:42 Pulse 77 09/11/22 09:30 Resp 13 09/11/22 09:30 BP 122/64 09/11/22 09:30 Pulse Ox 94 09/11/22 09:30 O2 Del Method 09/11/22 07:42 09/10/22 09/11/22 09/11/22 22:59 06:59 14:59 Intake Total 250 / 250 Balance 250 / 250 Weight last 48 hrs Weight 74.843 kg Physical Exam Narrative: General exam is a white male, conversant, no distress HEENT: Atraumatic normocephalic. Oropharynx clear. No mouth ulcers. Neck is supple no lymphadenopathy thyromegaly Cardiovascular regular rate and rhythm, no murmur Lungs clear no wheezing or crackles Abdomen is soft nontender positive bowel sounds. No obvious organomegaly exam is deferred Extremities no cyanosis, edema, cap refill brisk Skin no rash Neuro no obvious focal deficits. Data 09/11/22 07:32 09/11/22 07:32 Other Labs: Absolute neutrophil count is 80 Magnesium is ordered LFTs normal, albumin 3.3 I have ordered urinalysis Chest x-ray by my review demonstrates mild cardiomegaly, questionable infiltrate on the right, possible small infiltrate in the left. Pacemaker left side of chest is noted. Blood cultures have been performed. EKG demonstrates paced ventricular rhythm by my read Micro: Microbiology 09/11/22 08:04 Blood Culture - Preliminary Blood SPECIMEN COLLECTED 09/11/22 08:00 Blood Culture - Preliminary Blood SPECIMEN COLLECTED A&P Assessment and plan (1) Fever and neutropenia: Patient with temperature of 100.5 at home. Significantly low ANC, of 80 Broad-spectrum antibiotics of cefepime and vancomycin Blood cultures have been drawn Continue prophylactic acyclovir Add fluconazole prophylactically, which could be expanded should fever and worsening noted in the hospital Close follow-up of CBC and CMP in the morning (2) Pneumonia: Sputum culture if we are able to obtain Blood cultures have been drawn IV antibiotics consisting of cefepime and vancomycin MRSA PCR COVID, influenza testing (3) Myelodysplastic syndrome with excess blasts-2: Currently being followed for myelodysplasia, with concern for conversion to leukemia. 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 Platelet count may be recovering. Hemoglobin is still significantly low and he may require transfusion with irradiated red blood cells. He has had this in the past. This is likely secondary to his recent chemotherapy, but may also be secondary to his underlying myelodysplastic syndrome Plan Multiple other medical problems as outlined in past medical history Allow natural , confirmed with patient and SCDs for DVT prophylaxis currently secondary to significant anemia, recent severe thrombocytopenia. Will reassess daily. Attestations Medical Necessity Statement*: Will need greater than 2 midnight stay for evaluation of pancytopenia, neutropenia, need for IV antibiotics and pneumonia. Diagnoses Fever and neutropenia D70.9; R50.81 Pneumonia J18.9 Myelodysplastic syndrome with excess blasts-2 D46.22 Diabetes E11.65 Diabetes mellitus type: type 2 Diabetes mellitus termite control technician insulin use: without half-way use Diabetes mellitus complication status: with hyperglycemia Hypokalemia E87.6 Ischemic congestive cardiomyopathy I25.5; I42.0 Pancytopenia D61.818 Time Spent (min) 50
[2022-09-11 10:21] LABS: Magnesium 1.9 mg/dL (1.7-2.3)
[2022-09-11 11:20] LABS: Thyroid Stimulating Hormone 0.53 uIU/mL (0.27-4.20)
[2022-09-11 11:50] LABS: Influenza A by IFA negative (Negative); Influenza B by IFA negative (Negative)
--- NOTE | 2022-09-11 11:55 | PC.NURSE ---
Report called to [facility] on Med Surg
--- NOTE | 2022-09-11 12:00 | PC.PHAR ---
Pharmacokinetic dosing service Date: Time: Objective: Patient: Floor: Age: 82 yo Serum creatinine: 0.7 mg/dL Height: 70.9 Inches Weight (kg): 74 IBW (kg): 75.07 Dosing wt(kg): 74 Estimated Creatinine clearance (ml/min): 82.2 CRCL method: Cockcroft and Gault using ibw(default). Drug selected: Vancomycin Loading dose (mg): Vd (liters): 51.8 (factor used: 0.7 L/kg) Niko (hr-1): 0.073 Half life (hrs): 9.50 CLvanco=?? 3.781 L/hr Recommended dose: 1250 mg Interval: 12 hrs Infusion time (hrs): 1 Predicted peak (mcg/mL): 39.9 Predicted trough (mcg/mL): 17.87 Total body weight is being used for vancomycin dosing. Recommendations: Give Vancomycin 1250 mg q 12 hrs with an expected Cpeak of 39.9 mcg/ml and an expected Ctrough of 17.87 mcg/ml AUC 0-24 /TAYLOR Data: TAYLOR 0.5 mcg/mL:?? AUC/TAYLOR:? 1322.4 TAYLOR 1.0 mcg/mL:?? AUC/TAYLOR:? 661.2 --------- TAYLOR 1.5 mcg/mL:?? AUC/TAYLOR:? 440.8 TAYLOR 2.0 mcg/mL:?? AUC/TAYLOR:? 330.6 Renal dosing of other antibiotics (review renal dosing of other medications and list guidelines here): Thank you for the consult, will continue to follow. Fermin Hughes
[2022-09-11] MEDS: sodium chloride 0.9% 1,000 ML 75 ML IV ×2 (12:04→22:22)
[2022-09-11 12:51] LABS: Glucose Point of Care 147 mg/dL (70-110)
[2022-09-11 12:59] LABS: Adenovirus Not Detected (NOT DETECT); Chlamydia Pneumoniae Not Detected (NOT DETECT); Coronavirus 229E,HKU1,NL63,OC4 Not Detected (NOT DETECT); Human Metapneumovirus Not Detected (NOT DETECT); Human Rhinovirus/Enterovirus Not Detected (NOT DETECT); Influenza A Not Detected (NOT DETECT); Influenza A H1 Not Detected (NOT DETECT); Influenza A H1-2009 Not Detected (NOT DETECT); Influenza A H3 Not Detected (NOT DETECT); Influenza B Not Detected (NOT DETECT); Mycoplasma Pneumoniae Not Detected (NOT DETECT); Parainfluenza Virus Type 1 Not Detected (NOT DETECT); Parainfluenza Virus Type 2 Not Detected (NOT DETECT); Parainfluenza Virus Type 3 Not Detected (NOT DETECT); Parainfluenza Virus Type 4 Not Detected (NOT DETECT); Respiratory Syncytial Virus A Not Detected (NOT DETECT); Respiratory Syncytial Virus B Not Detected (NOT DETECT); SARS-COV-2 Not Detected (NOT DETECT)
[2022-09-11] MEDS: fluconazole premix 200 MG/100 ML PREMIX 100 MG IV (13:29)
[2022-09-11] MEDS: insulin lispro 100 unit/1 mL SUBCUT ×2 (13:29→22:20)
[2022-09-11] MEDS: cefepime 2,000 MG in sodium chloride 0.9% (plus) 50 ML 100 MG IV ×2 (16:05→22:20)
[2022-09-11] MEDS: HYDROcodone-acetaminophen 7.5-325 mg Tablet 2 TAB PO ×2 (16:24→23:19)
[2022-09-11 17:11] LABS: Glucose Point of Care 136 mg/dL (70-110)
[2022-09-11] MEDS: vancomycin 1,250 MG/250 ML PIGGYBACK 200 MG IV (17:55)
[2022-09-11] MEDS: magnesium oxide 400 mg tablet PO (18:00)
[2022-09-11] MEDS: metoprolol tartrate 25 mg Tablet 12.5 MG PO (18:00)
[2022-09-11] MEDS: donepezil 5 MG Tablet PO (18:00)
[2022-09-11] MEDS: acyclovir 400 mg Tablet PO (18:43)
[2022-09-11 21:07] LABS: Glucose Point of Care 173 mg/dL (70-110)
[2022-09-11 23:28] LABS: Add Urine Microscopic? NO; Charge for UA Resulting for Rev
[2022-09-11 23:30] LABS: Bilirubin Urine Neg (Negative); Blood Urine Neg (Negative); Glucose Urine UA Norm (Normal); Ketones Urine Negative (Negative); Leukocyte Esterase Urine Negative (Negative); Nitrate Urine Negative (Negative); Protein Urine Neg (Negative); Specific Gravity, Urine 1.015 (1.005-1.030); Urine Appearance Clear (CLEAR); Urine Color Yellow (Yellow); Urobilinogen Urine Neg (Negative); pH Urine 5 (5-7)
[2022-09-12] VITALS (15 sets, daily range): BP systolic 119–164; BP diastolic 57–83; PULSE 69–94; RESP 15–24; TEMP 36.4–38.5; O2SAT 74–96
[2022-09-12] MEDS: vancomycin 1,250 MG/250 ML PIGGYBACK 200 MG IV ×2 (04:12→17:09)
[2022-09-12 05:09] LABS: Hematocrit 21.7 % (42.0-52.0); Hemoglobin 6.9 g/dL (11.7-16.6); Lymphocytes # 0.4 10^3/uL (0.8-4.8); Lymphocytes % 78.3 %; Mean Corpuscular HGB Conc 31.8 g/dL (30.0-36.0); Mean Corpuscular Hemoglobin 33.2 pg (28.0-34.0); Mean Corpuscular Volume 104.3 fl (80-94); Mean Platelet Volume 9.8 fL (7.4-10.4); Monocytes % 8.7 %; Nucleated Red Blood Cells % 0 %; Platelet Count 139 10^3/cmm (130-400); Red Blood Count 2.08 10^6/uL (4.1-5.3); Red Cell Distribution Width 17.2 % (12.1-15.1)
[2022-09-12 05:29] LABS: Alanine Aminotransferase 20 U/L (0-41); Albumin Level 2.8 g/dL (3.5-5.2); Alkaline Phosphatase 45 U/L (40-130); Anion Gap 12.6 (5-19); Aspartate Amino Transferase 31 U/L (0-40); Blood Urea Nitrogen 19 mg/dL (8-23); Calcium 8.6 mg/dL (8.5-10.5); Carbon Dioxide 23 mmol/L (22-29); Chloride 106 mmol/L (98-107); Glucose 136 mg/dL (65-115); Magnesium 1.9 mg/dL (1.7-2.3); Osmolality Calculated 290 mOsm/kg (285-295); Potassium 3.6 mmol/L (3.5-5.1); Sodium 138 mmol/L (136-145); Total Bilirubin 0.4 mg/dL (0.15-1.2); Total Protein 5.8 g/dL (6.6-8.7)
[2022-09-12] MEDS: pantoprazole DR 40 mg Tablet PO (05:35)
[2022-09-12] MEDS: spironolactone 25 mg Tablet PO (05:35)
[2022-09-12] MEDS: HYDROcodone-acetaminophen 7.5-325 mg Tablet 2 TAB PO ×3 (05:35→19:35)
[2022-09-12] MEDS: sacubitril/valsartan 24-26 mg Tablet 1 EACH PO (05:35)
[2022-09-12] MEDS: sertraline 100 mg Tablet PO (05:35)
[2022-09-12] MEDS: cefepime 2,000 MG in sodium chloride 0.9% (plus) 50 ML 100 MG IV ×3 (05:35→23:11)
[2022-09-12 06:41] LABS: Slide Review Slide Review Perform
[2022-09-12 06:43] LABS: Neutrophils # 0.06 10^3/uL (1.8-7.7); White Blood Count 0.5 10^3/uL (4.0-10.0)
[2022-09-12 06:57] LABS: Glucose Point of Care 153 mg/dL (70-110)
[2022-09-12] MEDS: insulin lispro 100 unit/1 mL SUBCUT (09:28)
[2022-09-12] MEDS: acyclovir 400 mg Tablet PO ×2 (09:28→17:15)
--- NOTE | 2022-09-12 09:29 | PM.PN ---
Subjective Subjective: Sourav reports he feels about the same as yesterday. Denies being short of breath or significant cough. Does feel weak. Does not feel like eating. Medications: Reviewed: Yes Vitals/I&O/Wt Last Vital Signs Temp 97.8 F 09/12/22 08:00 Pulse 69 09/12/22 08:00 Resp 15 09/12/22 08:00 BP 122/69 09/12/22 08:00 Pulse Ox 94 09/12/22 08:00 O2 Del Method 09/12/22 08:00 O2 Flow Rate 2 09/12/22 08:00 09/11/22 09/12/22 09/12/22 22:59 06:59 14:59 Intake Total 1122.5 / 1422.5 300 / 1722.5 Balance 1122.5 / 1422.5 300 / 1722.5 Weight last 48 hrs Weight 73.437 kg Weight 74.843 kg Physical Exam Narrative: General exam no distress Neck is supple no lymphadenopathy thyromegaly Cardiovascular regular rate and rhythm, no murmur Lungs clear no wheezing or crackles Abdomen is soft nontender positive bowel sounds. No obvious organomegaly Extremities no cyanosis, edema, cap refill brisk Skin no rash Data 09/12/22 04:50 09/12/22 04:50 Micro: Microbiology 09/11/22 08:04 Blood Culture - Preliminary Blood NEGATIVE TO DATE 09/11/22 08:00 Blood Culture - Preliminary Blood NEGATIVE TO DATE A&P Assessment and plan (1) Fever and neutropenia: Patient with temperature of 100.5 at home. Significantly low ANC, of 80 Continue broad-spectrum antibiotics of cefepime and vancomycin Blood cultures have been drawn and are pending Continue prophylactic acyclovir Continue fluconazole prophylactically, which could be expanded should fever and worsening noted in the hospital Repeat CBC and CMP in the morning He has not had a fever while being in the hospital, but white blood cell count has decreased further. His ANC is currently 60. (2) Pneumonia: Sputum culture if we are able to obtain. As of yet he is not producing sputum Blood cultures have been drawn and pending IV antibiotics consisting of cefepime and vancomycin MRSA PCR pending COVID, influenza testing negative (3) Myelodysplastic syndrome with excess blasts-2: Currently being followed for myelodysplasia, with concern for conversion to leukemia. He has had initial treatment recently initiated on August 19 (4) Diabetes: Continue sliding scale insulin (5) Hypokalemia: Supplemented and normal today. Magnesium checked and normal Repeat BMP tomorrow (6) Ischemic congestive cardiomyopathy: Continue home medications (7) Pancytopenia: Continue daily monitoring of hemoglobin and platelet count. Platelet count may be recovering. Hemoglobin has dropped further to 6.9. Considering his underlying mild dysplasia, with need for multiple transfusions in the past we will transfuse with 2 units of packed red blood cells today. Discussed risks and benefits with the patient. Repeat CBC tomorrow. This is likely secondary to his recent chemotherapy, but may also be secondary to his underlying myelodysplastic syndrome Plan Multiple other medical problems as outlined in past medical history Allow natural , confirmed with patient and SCDs for DVT prophylaxis currently secondary to significant anemia, recent severe thrombocytopenia. Will reassess daily. Attestations Medical Necessity Statement*: Requires further hospitalization for IV antibiotics secondary to fever and neutropenia, transfusion secondary to significant anemia Diagnoses Fever and neutropenia D70.9; R50.81 Pneumonia J18.9 Myelodysplastic syndrome with excess blasts-2 D46.22 Diabetes E11.9 Hypokalemia E87.6 Ischemic congestive cardiomyopathy I25.5; I42.0 Pancytopenia D61.818 Time Spent (min) 31
--- NOTE | 2022-09-12 10:56 | PC.CHAP ---
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 [] Patient/Family/Request visit [] Outpatient visit [] Follow-up visit [] Physician referral [] Code/Alert [] Routine visit [] Staff referral [] Actively dying [] Patient sleeping [] Family support [] [] Out of room [] Palliative care [] [] Receiving care in room [] Pre-surgical visit [] Trauma [] Long length of stay [] ICU visit [x] Other: Isoation Relational/Emotional Strength [] Patient feels connected with others/family/visitors/staff [] Distress [] Loneliness/isolation [] Abandonment Spirituality of Patient [] Person of [place] [] Attends Pentecostal of their [place] [] Believes in Prayer [] Reads Bible or Anabaptist materials [] There are Spiritual issues to be addressed 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 [] Prayer [] Active listening [] Non-anxious presence [] Spiritual/emotional support [] Crisis/trauma care [] Spiritual counseling [] Bereavement support [] Provided bereavement packet [] Provided Bible/devotional materials [] Provided toy/stuffed animal, coloring book to patient or family member [] Provided Communion [] Anointing/[place] [] Salvation [] Completed spiritual assessment [] Other: Impact on Illness or Injury [] Angry [] Fearful [] Anxious [] Often cries [] Exhaustion [] Unable to work [] Unable to attend mormonism [] Unable to walk/stand [] Unable to read [] Unable to drive [] Unable to eat/drink [] Unable to sleep [] Unable to be with family [] Patient intubated [] Other: Summary Isoation Time spent with patient 5 mins
[2022-09-12 12:01] LABS: Glucose Point of Care 132 mg/dL (70-110)
[2022-09-12] MEDS: fluconazole premix 200 MG/100 ML PREMIX 100 MG IV (12:30)
[2022-09-12] MEDS: sodium chloride 0.9% (100 ml) 100 ML 75 ML (13:07)
[2022-09-12] MEDS: magnesium oxide 400 mg tablet PO (17:15)
[2022-09-12] MEDS: donepezil 5 MG Tablet PO (17:15)
[2022-09-12] MEDS: metoprolol tartrate 25 mg Tablet 12.5 MG PO (17:16)
[2022-09-12 17:23] LABS: Glucose Point of Care 137 mg/dL (70-110)
[2022-09-12] MEDS: ondansetron 2 mg/ML SDV 2 mL 4 MG IVP (19:35)
[2022-09-12] MEDS: acetaminophen 325 mg Tablet 650 MG PO (21:22)
[2022-09-12] MEDS: sodium chloride 0.9% 1,000 ML 75 ML IV (21:30)
[2022-09-12 22:53] LABS: Glucose Point of Care 189 mg/dL (70-110)
[2022-09-13] VITALS (10 sets, daily range): BP systolic 109–127; BP diastolic 52–69; PULSE 66–70; RESP 14–21; TEMP 36.5–37.5; O2SAT 92–97
[2022-09-13] MEDS: sacubitril/valsartan 24-26 mg Tablet 1 EACH PO (05:00)
[2022-09-13] MEDS: sertraline 100 mg Tablet PO (05:00)
[2022-09-13] MEDS: pantoprazole DR 40 mg Tablet PO (05:00)
[2022-09-13] MEDS: spironolactone 25 mg Tablet PO (05:00)
[2022-09-13] MEDS: HYDROcodone-acetaminophen 7.5-325 mg Tablet 2 TAB PO ×2 (05:00→13:56)
[2022-09-13 05:06] LABS: Hematocrit 29.2 % (42.0-52.0); Hemoglobin 9.6 g/dL (11.7-16.6); Mean Corpuscular HGB Conc 32.9 g/dL (30.0-36.0); Mean Corpuscular Hemoglobin 32.7 pg (28.0-34.0); Mean Corpuscular Volume 99.3 fl (80-94); Mean Platelet Volume 9.8 fL (7.4-10.4); Platelet Count 133 10^3/cmm (130-400); Red Blood Count 2.94 10^6/uL (4.1-5.3); Red Cell Distribution Width 19.5 % (12.1-15.1)
[2022-09-13 05:26] LABS: Alanine Aminotransferase 22 U/L (0-41); Albumin Level 2.8 g/dL (3.5-5.2); Alkaline Phosphatase 61 U/L (40-130); Aspartate Amino Transferase 32 U/L (0-40); Blood Urea Nitrogen 22 mg/dL (8-23); Calcium 8.6 mg/dL (8.5-10.5); Carbon Dioxide 20 mmol/L (22-29); Chloride 111 mmol/L (98-107); Globulin 3.3 g/dL (1.3-4.6); Glucose 160 mg/dL (65-115); Osmolality Calculated 301 mOsm/kg (285-295); Sodium 142 mmol/L (136-145); Total Bilirubin 1.2 mg/dL (0.15-1.2); Total Protein 6.1 g/dL (6.6-8.7)
[2022-09-13 05:27] LABS: Vancomycin Trough 15.8 ug/mL (10-15)
[2022-09-13] MEDS: vancomycin 1,250 MG/250 ML PIGGYBACK 200 MG IV ×2 (05:38→17:55)
[2022-09-13] MEDS: ondansetron 2 mg/ML SDV 2 mL 4 MG IVP ×2 (06:18→12:41)
[2022-09-13] MEDS: cefepime 2,000 MG in sodium chloride 0.9% (plus) 50 ML 100 MG IV ×3 (06:18→22:00)
[2022-09-13 06:58] LABS: Glucose Point of Care 164 mg/dL (70-110)
[2022-09-13 07:39] LABS: Lymphocytes # 0.2 10^3/uL (0.8-4.8); Lymphocytes % 64.3 %; Monocytes % 10.7 %; Nucleated Red Blood Cells % 0 %
[2022-09-13 07:43] LABS: White Blood Count 0.3 10^3/uL (4.0-10.0)
[2022-09-13 07:45] LABS: Neutrophils # 0.07 10^3/uL (1.8-7.7)
[2022-09-13 07:46] LABS: Slide Review Slide Review Perform
--- NOTE | 2022-09-13 08:30 | CT_ITS ---
WS: [id number] CT CHEST, ABDOMEN, AND PELVIS TECHNIQUE: Contrast-enhanced CT of the chest, abdomen, and pelvis with coronal and sagittal reformatt ed images. CLINICAL INFORMATION: fever COMPARISON: None. DLP: 1175.[address] scans at [facility] use at least one of these dose optimization techniques: automated e xposure control; mA and/or kV adjustment per patient size (includes targeted exams where dose is matc hed to clinical indication); or iterative reconstruction. CT CHEST: AICD. Sternotomy. CABG. Moderate chronic emphysematous changes. Scattered hazy groundglass infiltrate s worse in the upper lobes. Interstitial thickening with tree-in-bud opacities likely infectious or i nflammatory. Small bilateral pleural effusions. No focal consolidation. Small amount pleural fluid al flako the fissures. Mild aortic calcification. Normal caliber descending thoracic aorta. No mediastinal or hilar lymphade nopathy. No axillary lymphadenopathy. CT ABDOMEN AND PELVIS: Diffuse fatty infiltration liver. Normal spleen. Normal GE junction. Mild dilatation of the common bi le duct likely physiologic postcholecystectomy. Fatty atrophy of the pancreas. Normal portal vein and splenic vein. Splenic artery calcification. Normal spleen. Adrenal glands are normal. Normal renal p arenchymal enhancement. No hydronephrosis. Small amount of free fluid in the pelvis. Surgical clips about the colon in the LEFT lower quadrant l ikely due to prior partial sigmoid resection. Mild RIGHT colon and transverse colon constipation. Tor tuous abdominal aorta. No significant aneurysm. Vascular calcification. Moderate spondylitic changes lumbar spine. Intraluminal enhancement in the cecum with inspissated secretions is nonspecific. Intra luminal cecal mass not excluded. Recommend follow-up with colonoscopy. CT/CT chest abdpel w/*[id number] IMPRESSION: 1. Diffuse coarse interstitial and hazy ground glass infiltrates throughout agnely th lungs with a few tree-in-bud opacities worse in the upper lobes. This is lik bulmaro infectious or inflammatory. Recommend correlation for pneumonia. Some this may be due to edema. 2. Small bilateral pleural effusions. 3. No focal consolidation. 4. No mediastinal or hilar lymphadenopathy. 5. Intraluminal enhancement in the cecum with inspissated secretions is nonspe cific. Intraluminal cecal mass not excluded. Recommend follow-up with colonosco py. 6. Evidence of prior partial sigmoidectomy. 7. Small amount of free fluid in the pelvis. 8. No other acute findings.
--- NOTE | 2022-09-13 08:53 | PM.PN ---
Subjective Subjective: Sourav reports he has felt very low energy. He denies being short of breath, or having a cough. Oxygen was increased to 2-1/2 L. He denies feeling swollen. No chest pain. No abdominal pain. He has had a little bit of nausea. He did not realize he had a fever last night. No chills. Medications: Reviewed: Yes Vitals/I&O/Wt Last Vital Signs Temp 99 F 09/13/22 08:00 Pulse 69 09/13/22 08:00 Resp 16 09/13/22 08:00 BP 124/64 09/13/22 08:00 Pulse Ox 95 09/13/22 08:00 O2 Del Method 09/13/22 04:00 O2 Flow Rate 2.5 09/13/22 00:00 09/12/22 09/13/22 09/13/22 22:59 06:59 14:59 Intake Total 800 / 2480 290 / 2770 250 / 250 Output Total 600 / 800 150 / 950 Balance 200 / 1680 140 / 1820 250 / 250 Weight last 48 hrs Weight 73.437 kg Physical Exam Narrative: General exam no distress Neck is supple no lymphadenopathy thyromegaly Cardiovascular regular rate and rhythm, no murmur Lungs clear no wheezing or crackles. Diminished breath sounds are noted bilaterally Abdomen is soft nontender positive bowel sounds. No obvious organomegaly Extremities no cyanosis, edema, cap refill brisk Skin no rash Data 09/13/22 04:39 09/13/22 04:39 Micro: Microbiology 09/11/22 11:40 MRSA Culture - Final Nose 09/11/22 08:04 Blood Culture - Preliminary Blood NEGATIVE TO DATE 09/11/22 08:00 Blood Culture - Preliminary Blood NEGATIVE TO DATE A&P Assessment and plan (1) Fever and neutropenia: Tmax around 101.3, at 8 PM. Currently 99 ?F. Broad-spectrum antibiotics of cefepime and vancomycin were started at admission. He has been on Cipro prior to this after initiation of chemotherapy including azacitidine and venetoclax Blood cultures have been drawn and negative to date Prophylactic acyclovir has been continued from admission He was placed on fluconazole on admission. We will discontinue this and change to micafungin. Fungitell will be ordered along with bacterial antigens, Legionella He has not been able to produce sputum CT chest abdomen and pelvis will be obtained with contrast secondary to fever Repeat CBC and CMP in the morning. ANC today is still significantly low at 80 Secondary to recurrent fever, day 2 of hospitalization we will consult infectious disease. I discussed case with them in detail. (2) Pneumonia: Sputum culture if we are able to obtain. As of yet he is not producing sputum Blood cultures have been drawn and pending IV antibiotics consisting of cefepime and vancomycin See above, fluconazole switched out for micafungin MRSA PCR negative COVID, influenza testing negative. I checked with laboratory and his entire viral panel was negative on admission (3) Myelodysplastic syndrome with excess blasts-2: Currently being followed for myelodysplasia, with concern for conversion to leukemia. He has had initial treatment recently initiated on August 19 (4) Diabetes: Continue sliding scale insulin (5) Hypokalemia: Supplemented and normal currently Magnesium checked and normal Repeat BMP tomorrow (6) Ischemic congestive cardiomyopathy: Continue home medications Underlying ejection fraction around 35% April 2022. Fluids are now discontinued, Lasix 40 mg IV x1. He does not appear fluid overloaded but he has a positive fluid balance and is requiring more oxygen. (7) Pancytopenia: Continue daily monitoring of hemoglobin and platelet count. Platelet count has recovered Hemoglobin has improved following 2 units of blood, irradiated, given September 12. Repeat CBC tomorrow. This is likely secondary to his recent chemotherapy, but may also be secondary to his underlying myelodysplastic syndrome Plan Multiple other medical problems as outlined in past medical history Allow natural , confirmed with patient and SCDs for DVT prophylaxis currently secondary to significant anemia, recent severe thrombocytopenia. Will reassess daily. Attestations Medical Necessity Statement*: Needs continued hospitalization secondary to persistent fever as well as neutropenia requiring IV antibiotics Diagnoses Fever and neutropenia D70.9; R50.81 Pneumonia J18.9 Myelodysplastic syndrome with excess blasts-2 D46.22 Diabetes E11.9 Hypokalemia E87.6 Ischemic congestive cardiomyopathy I25.5; I42.0 Pancytopenia D61.818 Time Spent (min) 32
[2022-09-13] MEDS: insulin lispro 100 unit/1 mL SUBCUT ×2 (09:38→18:10)
[2022-09-13] MEDS: FUROsemide 10 mg/mL SDV 4mL 40 MG IVP (09:39)
[2022-09-13 10:09] LABS: Glucose Point of Care 158 mg/dL (70-110)
[2022-09-13] MEDS: micafungin 100 MG in sodium chloride 0.9% (plus) 100 ML IV (11:03)
[2022-09-13 11:51] LABS: Glucose Point of Care 132 mg/dL (70-110)
[2022-09-13] MEDS: iohexol 350 mg/mL 500 mL Btl (per mL) IV (14:59)
[2022-09-13 16:30] LABS: Glucose Point of Care 156 mg/dL (70-110)
[2022-09-13] MEDS: acyclovir 400 mg Tablet PO (17:55)
[2022-09-13] MEDS: magnesium oxide 400 mg tablet PO (17:55)
[2022-09-13] MEDS: metoprolol tartrate 25 mg Tablet 12.5 MG PO (17:55)
[2022-09-13] MEDS: donepezil 5 MG Tablet PO (17:55)
--- NOTE | 2022-09-13 18:49 | P.CONIM_ITS ---
Providers/Reason For Consult Consulting Physician/Specialty*: Aracelis Rankin MD/ Infectious DIsease Reason for Consult*: fever and neutropenia Requesting Physician: Nitish Pedraza MD Attending Physician: Nitish Pedraza MD Primary Care Provider: Mari Avitia MD History of Present Illness History of Present Illness Sourav Islas Sr is a 82 year old male with HTN, type 2 diabetes, CAD, A fib, cardiomyopathy s/p AICD. In 04/2022 he was diagnosed with pancytopenia, subsequently seen by oncology and diagnosed with MDS With ANC 1200 at diagnosis. On BM biopsy, myeloblasts were increased, estimated at 16.8% of the total cellularity. He was seen at [facility] and received chemotherapy with azacitidine and venetoclax on 08/19-08/27. Since 09/09, reported fever with T max 100.3 F at home with some chills. On 09/11 he was brought to the ER with c/o persisting fever. He does not appear to have had any localizing symptoms per se except for a loss of appetite not eating and drinking well. He has been on ciprofloxacin and acyclovir as outpatient prophylactically. Patient denies any complaints of cough chest pain dyspnea palpitations or syncope. No sick contacts at home. No nausea vomiting or diarrhea. no recent animal bites. No rashes. He does not have a port or endovascular device. no orthopedic hardware. no meningeal signs Review of Systems General: Reports: 10 or more systems reviewed and unremarkable except in HPI and below Const: Denies: fever(s), chills or body aches Eyes: Denies: change in vision, blurry vision or photophobia ENMT: Reports: hoarseness; Denies: throat pain, enlarged tonsils, odynophagia or nasal congestion Card: Denies: chest pain, palpitations, irregular heart rhythm, edema, s welling of feet/ankles, lightheadedness, pre-syncope, dyspnea on exertion or orthopnea Resp: Denies: dyspnea, productive cough, non-productive cough, wheezing, stridor, pain on inspiration, change in phlegm color, hemoptysis or chest congestion GI: Denies: abdominal pain, nausea, vomiting, hematemesis, coffee ground emesis, dysphagia, heartburn, diarrhea, constipation, GI cramping, change in stool character, hematochezia or melena : Denies: flank pain, dysuria, urinary frequency, urinary urgency, urinary hesitancy or hematuria Musc: Denies: neck pain, back pain, extremity pain, joint swelling, joint warmth or deformity Neuro: Denies: headache(s), numbness in extremities, weakness in extremities, sensory changes, difficulty walking, frequent falls, dizziness, vertigo, behavioral changes, Slurred speech present or seizure-like activity Psych: Denies: anxiety, depression, suicidal ideation or homicidal ideation Endo: Denies: polyuria, polydipsia, tired all the time, cold intolerance or hot flashes Mauricio/Lymph: Denies: easy bruising or easy bleeding Medications/Allergies Home Medications Medication Instructions Recorded Confirmed Last Taken Type dorzolamide 22.3 mg-timolol 6.8 1 drop ophthalmic (eye) BID 11/17/19 09/11/22 06/22/22 History mg/mL eye drops magnesium oxide 250 mg PO QPM 11/17/19 09/11/22 06/22/22 History multivitamin 1 tab PO QPM 11/17/19 09/11/22 06/22/22 History pantoprazole 40 mg tablet,delayed 40 mg PO QAM 11/17/19 09/11/22 06/22/22 History release travoprost 0.004 % eye drops 1 drp ophthalmic (eye) BEDTIME 11/17/19 09/11/22 06/22/22 History (Travatan Z) garlic 1,000 mg capsule (garlic 1,000 mg PO QPM 05/22/20 09/11/22 06/22/22 History oil) metoprolol tartrate 25 mg tablet 12.5 mg PO QPM 05/22/20 09/11/22 06/22/22 History meloxicam 15 mg tablet 15 mg PO DAILY PRN Pain 07/24/20 09/11/22 06/22/22 History sertraline 100 mg tablet 100 mg PO QAM 07/24/20 09/11/22 06/22/22 History donepezil 5 mg tablet 5 mg PO QPM 05/27/22 09/11/22 06/22/22 History sacubitril 24 mg-valsartan 26 mg 1 tab PO QAM 05/27/22 09/11/22 06/22/22 History tablet (Entresto) acyclovir 400 mg tablet 400 mg PO BID #60 tabs 08/19/22 09/11/22 Unknown Rx lorazepam 1 mg tablet 0.5 - 1 mg PO Q6H PRN Severe 08/19/22 09/11/22 Unknown Rx Nausea #30 tabs hydrocodone 7.5 mg-acetaminophen 2 tab PO Q4H PRN pain 20 days #60 09/02/22 09/11/22 09/11/22 06:30 Rx 325 mg tablet tabs 2 tabs ondansetron HCl 4 mg tablet 4 mg PO Q6H PRN nausea and 09/09/22 09/11/22 Unknown Rx vomiting #30 tabs venetoclax 100 mg tablet See Rx Instructions PO DAILY #51 09/10/22 09/11/22 Unknown Rx tabs cholecalciferol (vitamin D3) 125 125 mcg PO QPM 09/11/22 09/11/22 Unknown History mcg (5,000 unit) tablet (Vitamin D3) ciprofloxacin HCl 500 mg tablet 500 mg PO BID 09/11/22 09/11/22 Unknown History diphenhydramine HCl 25 mg capsule 25 - 50 mg PO .EVERY 4-6 HOURS PRN 09/11/22 09/11/22 Unknown History (Benadryl) Itching lutein 20 mg-zeaxanthin 1,000 mcg 1 cap PO DAILY@09/11/22 09/11/22 Unknown History capsule metformin 1,000 mg tablet 500 mg PO QAM 09/11/22 09/11/22 Unknown History omega-3 fatty acids 1,000 mg 1,000 mg PO QPM 09/11/22 09/11/22 Unknown History capsule potassium gluconate 595 mg (99 mg) 99 mg PO DAILY@12 09/11/22 09/11/22 Unknown History tablet simvastatin 10 mg tablet (Zocor) 5 mg PO QPM 09/11/22 09/11/22 Unknown History spironolactone 25 mg tablet 25 mg PO QAM 09/11/22 09/11/22 Unknown History Allergies Allergy/AdvReac Type Severity Reaction Status Date / Time prochlorperazine Allergy ADR-Itching Verified 09/11/22 09:26 [From Compazine] atorvastatin AdvReac Unknown muscle Verified 09/11/22 09:26 cramps rivaroxaban [From Xarelto] AdvReac Unknown GI bleed Verified 09/11/22 09:26 Current Medications Generic Name Dose Route Start Last Admin Trade Name Caydenq PRN Reason Stop Dose Admin Acetaminophen 650 mg 09/11/22 11:03 09/12/22 21:22 Acetaminophen 325 Mg Tablet PO 650 mg Q6H PRN Administration Mild/Mod Pain Or Temp >/= 101 Hydrocodone Bitart/Acetaminophen 2 tab 09/11/22 11:03 09/13/22 13:56 Hydrocodone-Acetaminophen 7.5-325 Mg Tablet PO 2 tab Q4H PRN Administration MODERATE pain Acyclovir 400 mg 09/11/22 18:00 09/13/22 17:55 Acyclovir 400 Mg Tablet PO 400 mg BID GALLITO Administration Donepezil HCl 5 mg 09/11/22 18:00 09/13/22 17:55 Donepezil 5 Mg Tablet PO 5 mg QPM GALLITO Administration Cefepime HCl 2,000 mg/ Sodium 50 mls @ 100 mls/hr 09/11/22 12:30 09/13/22 15:44 Chloride IV Infused Q8H GALLITO Infusion Protocol Vancomycin/PEG/NADA/Lysine/Water 1,250 mg in 250 mls @ 200 mls/hr 09/11/22 17:00 09/13/22 17:55 Vancocin IV 200 mls/hr Q12H GALLITO Administration Micafungin Sodium 100 mg/ 100 mls @ 100 mls/hr 09/13/22 10:00 09/13/22 12:39 Sodium Chloride IV Infused Q24H GALLITO Infusion Insulin Human Lispro 0 unit 09/11/22 12:00 09/13/22 18:10 Insulin Lispro 100 Unit/1 Ml SUBCUT 2 unit WM&BEDTIME GALLITO Administration Protocol Magnesium Oxide 400 mg 09/11/22 18:00 09/13/22 17:55 Magnesium Oxide 400 Mg Tablet PO 400 mg QPM GALLITO Administration Metoprolol Tartrate 12.5 mg 09/11/22 18:00 09/13/22 17:55 Metoprolol Tartrate 25 Mg Tablet PO 12.5 mg QPM GALLITO Administration Non-Formulary 1 drop 09/11/22 21:00 09/12/22 22:02 Medication ( EYEAFF Not Given Latanoprost 0.005%) BEDTIME GALLITO Ondansetron HCl 4 mg 09/11/22 11:03 09/13/22 12:41 Ondansetron 2 Mg/Ml Sdv 2 Ml IVP 4 mg Q6H PRN Administration vomiting, or N/V if npo Pantoprazole Sodium 40 mg 09/12/22 06:00 09/13/22 05:[address] 40 Mg Tablet PO 40 mg QAM GALLITO Administration Sacubitril/Valsartan 1 each 09/12/22 06:00 09/13/22 05:00 Sacubitril/Valsartan 24-26 Mg Tablet PO 1 each QAM GALLITO Administration Sertraline HCl 100 mg 09/12/22 06:00 09/13/22 05:00 Sertraline 100 Mg Tablet PO 100 mg QAM GALLITO Administration Spironolactone 25 mg 09/12/22 06:00 09/13/22 05:00 Spironolactone 25 Mg Tablet PO 25 mg QAM GALLITO Administration PFSH Acute PFSH: Medical History Atrial fibrillation CAD (coronary artery disease) Cardiomyopathy Chronic atrial fibrillation Degenerative arthritis Degenerative joint disease of spine Dementia Depression Fibromyalgia Glaucoma Hx of colonic polyps Hx of myocardial infarction Hyperlipidemia Hypertension Myelodysplastic syndrome Pulmonary hypertension Type 2 diabetes mellitus Surgical History Biventricular ICD (implantable cardioverter-defibrillator) in place History of open sigmoidectomy Hx of CABG Hx of cholecystectomy S/P cataract extraction and insertion of intraocular lens Family History Brother CAD (coronary artery disease) Family/Other Diabetes Other Hypertension Denies family history of Clotting disorder Dementia Chronic kidney disease (CKD) Suicide Anesthesia complication Bleeding disorder Lung disease Cancer Stroke Social History Smoking and tobacco status: never smoked Alcohol intake: never Vitals/I&O/Wt Last Vital Signs Temp 98.2 F 09/13/22 16:00 Pulse 69 09/13/22 16:00 Resp 16 09/13/22 16:00 BP 109/52 09/13/22 16:00 Pulse Ox 92 09/13/22 16:00 O2 Del Method 09/13/22 16:00 O2 Flow Rate 2 09/13/22 15:34 09/13/22 09/13/22 09/13/22 06:59 14:59 22:59 Intake Total 290 / 2770 1220 / 1220 50 / 1270 Output Total 150 / 950 400 / 400 Balance 140 / 1820 820 / 820 50 / 870 Weight last 48 hrs Weight 73.437 kg Physical Exam Narrative: General: No acute distress, AO x3 HEENT: PERRLA, pupils bilaterally equal and reactive, pallors not present Chest: Normal vesicular breath sounds, no added sounds, equal good air entry bilaterally CVS: S1-S2 regular, no murmurs, no tachycardia, no gallops, no rubs Abdomen: Soft, nontender, no organomegaly, bowel sounds present Neuro: No focal deficits, no facial deformity, AO x3, power 5/5 in all limbs Extremities: no LE edema, no rashes . Data 09/13/22 04:39 09/13/22 04:39 Other Labs: # XR/XR chest 1V portable [id number] IMPRESSION: 1. Diffuse airspace and interstitial infiltrates throughout both lung coffman. This probably represents pneumonia however acute pulmonary edema could have this appearance. 2. Mild cardiac enlargement. ? # CT/CT chest abdpel w/*[id number] IMPRESSION: ? 1.? Diffuse coarse interstitial and hazy ground glass infiltrates throughout both lungs with a few tree-in-bud opacities worse in the upper lobes. This is likely infectious or inflammatory. Recommend correlation for pneumonia. Some this may be due to edema. 2.? Small bilateral pleural effusions. 3.? No focal consolidation. 4.? No mediastinal or hilar lymphadenopathy. 5.? Intraluminal enhancement in the cecum with inspissated secretions is nonspecific. Intraluminal cecal mass not excluded. Recommend follow-up with colonoscopy. 6.? Evidence of prior partial sigmoidectomy. 7.? Small amount of free fluid in the pelvis. 8.? No other acute findings. Blood culture September 11, 2022: No growth to date. Micro: Microbiology 09/13/22 11:38 Legionella Urinary Antigen - Final Urine,Voided Bacterial Antigens - Final A&P Assessment and plan (1) Fever and neutropenia: (2) Pneumonia: Plan 52-year-old male with MDS recently started on chemotherapy presenting with fever and neutropenia, not resolved with outpatient treatment with ciprofloxacin. No localizing clinical symptoms, however on evaluation has been found to have chest x-ray with bilateral infiltrates suggestive of a possible pneumonia. He is currently on treatment with cefepime and vancomycin appropriately Awaiting sputum culture and Gram stain. CT of the abdomen and pelvis was ordered after discussing the case with hospitalist. Chief concern was for typhlitis given his neutropenia, complains of loss of appetite. He was noted to have intraluminal enhancement in the cecum with inspissated secretions, intraluminal cecal mass could not be excluded. Concerned that the findings may be indicative of possible typhlitis, since he is neutropenic he may not mount a jessica inflammatory response at this time. He is on appropriate antibiotic coverage currently. We will follow along Coding Level of Care Code Acute Code for Chg Fwd Moderate MDM includes number and complexity of problems actively addressed during encounter, amount and/or complexity of data reviewed/ordered and described risk of complication, morbidity or mortality of management as documented Diagnoses Fever and neutropenia D70.9; R50.81 Pneumonia J18.9
[2022-09-13 21:09] LABS: Glucose Point of Care 120 mg/dL (70-110)
[2022-09-13] MEDS: LATANOPROST 0.005% 1 EACH EYEAFF (21:59)
[2022-09-14] VITALS (59 sets, daily range): BP systolic 122–161; BP diastolic 59–72; PULSE 69–78; RESP 0–22; TEMP 36.6–36.8; O2SAT 90–98
[2022-09-14 04:01] LABS: Basophils % 1.8 %; Eosinophils % 1.8 %; Hematocrit 35.3 % (42.0-52.0); Hemoglobin 11.5 g/dL (11.7-16.6); Lymphocytes # 0.4 10^3/uL (0.8-4.8); Lymphocytes % 74.5 %; Mean Corpuscular HGB Conc 32.6 g/dL (30.0-36.0); Mean Corpuscular Hemoglobin 32.2 pg (28.0-34.0); Mean Corpuscular Volume 98.9 fl (80-94); Monocytes # 0.1 10^3/uL (0.2-0.9); Monocytes % 9.1 %; Nucleated Red Blood Cells % 0 %; Platelet Count 109 10^3/cmm (130-400); Red Blood Count 3.57 10^6/uL (4.1-5.3); Red Cell Distribution Width 19.1 % (12.1-15.1)
[2022-09-14 04:14] LABS: Neutrophils # 0.06 10^3/uL (1.8-7.7); White Blood Count 0.6 10^3/uL (4.0-10.0)
[2022-09-14 04:15] LABS: Slide Review Slide Review Perform
[2022-09-14 04:25] LABS: Alanine Aminotransferase 18 U/L (0-41); Albumin Level 2.8 g/dL (3.5-5.2); Alkaline Phosphatase 65 U/L (40-130); Aspartate Amino Transferase 25 U/L (0-40); Blood Urea Nitrogen 23 mg/dL (8-23); Calcium 8.8 mg/dL (8.5-10.5); Carbon Dioxide 20 mmol/L (22-29); Chloride 110 mmol/L (98-107); Globulin 2.9 g/dL (1.3-4.6); Glucose 128 mg/dL (65-115); Osmolality Calculated 299 mOsm/kg (285-295); Sodium 142 mmol/L (136-145); Total Bilirubin 0.4 mg/dL (0.15-1.2); Total Protein 5.7 g/dL (6.6-8.7)
[2022-09-14 04:36] LABS: Anion Gap 15.8 (5-19); Potassium 3.8 mmol/L (3.5-5.1)
[2022-09-14] MEDS: vancomycin 1,250 MG/250 ML PIGGYBACK 200 MG IV (05:01)
[2022-09-14] MEDS: sertraline 100 mg Tablet PO (05:02)
[2022-09-14] MEDS: pantoprazole DR 40 mg Tablet PO (05:02)
[2022-09-14] MEDS: sacubitril/valsartan 24-26 mg Tablet 1 EACH PO (05:02)
[2022-09-14] MEDS: spironolactone 25 mg Tablet PO (05:02)
[2022-09-14] MEDS: HYDROcodone-acetaminophen 7.5-325 mg Tablet 2 TAB PO (06:00)
[2022-09-14 06:38] LABS: Glucose Point of Care 130 mg/dL (70-110)
[2022-09-14] MEDS: cefepime 2,000 MG in sodium chloride 0.9% (plus) 50 ML 100 MG IV ×2 (06:54→14:55)
--- NOTE | 2022-09-14 09:04 | CTR_ITS ---
PROCEDURE INFORMATION: Exam: CTA Head With Contrast, Arteriography Exam date and time: 09/14/2022 9:11 AM Age: 82 years old Clinical indication: Stroke-like symptoms; Lt upper extremity and lt lower extremity weakness TECHNIQUE: Imaging protocol: Computed tomographic angiography of the head with contrast. Exam focused on the arteries. 3D rendering (Not supervised by radiologist): MIP and/or 3D reconstructed images were created by the technologist. Radiation optimization: All CT scans at this facility use at least one of these dose optimization techniques: automated exposure control; mA and/or kV adjustment per patient size (includes targeted exams where dose is matched to clinical indication); or iterative reconstruction. Contrast material: OMNI 350; Contrast volume: 100 ml; Contrast route: INTRAVENOUS (IV); REPORTING DATA: Count of CT and Cardiac NM exams in prior 12 months: This patient has received 2 known CTs and 0 known cardiac nuclear medicine studies in the 12 months prior to the current study. COMPARISON: No relevant prior studies available. RADIATION DOSE METRICS: Total DLP (mGy-cm): 1059.42 FINDINGS: ANTERIOR CIRCULATION: Right internal carotid artery: Intracranial segment is patent with no significant stenosis. No aneurysm. Right middle cerebral artery: No occlusion or significant stenosis. No aneurysm. Right anterior cerebral artery: No occlusion or significant stenosis. No aneurysm. Left internal carotid artery: Intracranial segment is patent with no significant stenosis. No aneurysm. Left middle cerebral artery: No occlusion or significant stenosis. No aneurysm. Left anterior cerebral artery: No occlusion or significant stenosis. No aneurysm. POSTERIOR CIRCULATION: Right vertebral artery: No occlusion or significant stenosis. No aneurysm. Left vertebral artery: No occlusion or significant stenosis. No aneurysm. Basilar artery: No occlusion or significant stenosis. No aneurysm. Right posterior cerebral artery: No occlusion or significant stenosis. No aneurysm. Left posterior cerebral artery: No occlusion or significant stenosis. No aneurysm. Brain: No hemorrhage, mass effect or midline shift. No acute, major vascular distribution infarction identified. There is foci of decreased attenuation in the periventricular and subcortical white matter, likely representing chronic small vessel ischemic changes. Mild cerebral volume loss is present. No intra-axial or extra-axial fluid collection seen. Cerebral ventricles: No ventriculomegaly. Orbital cavities: Bilateral lens replacement noted. Mastoid air cells: Visualized mastoid air cells are well aerated. Paranasal sinuses: Visualized sinuses are unremarkable. No fluid levels. Bones/joints: Unremarkable. No acute fracture. Soft tissues: Unremarkable. PROCEDURE INFORMATION: Exam: CTA Neck With Contrast Exam date and time: 09/14/2022 9:11 AM Age: 82 years old Clinical indication: Stroke-like symptoms; Lt upper extremity and lt lower extremity weakness TECHNIQUE: Imaging protocol: Computed tomographic angiography of the neck with contrast. 3D rendering (Not supervised by radiologist): MIP and/or 3D reconstructed images were created by the technologist. Radiation optimization: All CT scans at this facility use at least one of these dose optimization techniques: automated exposure control; mA and/or kV adjustment per patient size (includes targeted exams where dose is matched to clinical indication); or iterative reconstruction. Contrast material: OMNI 350; Contrast volume: 100 ml; Contrast route: INTRAVENOUS (IV); REPORTING DATA: Count of CT and Cardiac NM exams in prior 12 months: This patient has received 2 known CTs and 0 known cardiac nuclear medicine studies in the 12 months prior to the current study. COMPARISON: CT chest abdpel w/*[id number] 09/13/2022 2:53 PM RADIATION DOSE METRICS: Total DLP (mGy-cm): 1059.42 FINDINGS: Tubes, catheters and devices: Pacemaker seen in the left chest. Right common carotid artery: No stenosis. No dissection or occlusion. Right internal carotid artery: There is extensive calcified and noncalcified plaque involving the carotid bulb and proximal right internal carotid artery, resulting in severe stenosis. No dissection or occlusion. Right external carotid artery: No occlusion. There is focal severe stenosis at the ostium of the right external carotid artery. Left common carotid artery: No stenosis. No dissection or occlusion. Left internal carotid artery: No significant stenosis of the extracranial segment. No dissection or occlusion. Left external carotid artery: No occlusion or stenosis of the origin. Right vertebral artery: No significant stenosis. No dissection or occlusion. Left vertebral artery: There is focal severe stenosis at the ostium of the left vertebral artery. No dissection or occlusion. Soft tissues: Normal. No significant soft tissue swelling. Bones/joints: No acute fracture. Degenerative changes of the spine seen. Median sternotomy changes seen. Lungs: There is mosaic pattern of attenuation of the lungs, in association with bilateral ground-glass opacities, paraseptal thickening and pleural effusions, suggestive of pulmonary edema. Pneumonia should be excluded clinically. CT/CT angio headneck* [id number] IMPRESSION: 1. No acute intracranial abnormality. 2. No large vessel stenosis or occlusion. IMPRESSION: 1. Severe stenosis of the right carotid bulb and proximal right internal carotid artery. 2. Severe stenosis at the ostium of the right external carotid artery. 3. Severe stenosis at the ostium of the left vertebral artery. 4. Imaging findings of pulmonary edema with bilateral pleural effusions. Pneumonia should be excluded clinically. REFERENCES: NASCET CRITERIA. The degree of stenosis in the cervical segment of the internal carotid artery is based on NASCET criteria. Normal is no stenosis. Mild is less than 50% stenosis. Moderate is 50-69% stenosis. Severe is 70% to 99% stenosis. Total occlusion is no detectable patent lumen.
[2022-09-14] MEDS: iohexol 350 mg/mL 500 mL Btl (per mL) IV (09:21)
[2022-09-14 09:28] LABS: Glucose Point of Care 159 mg/dL (70-110)
--- NOTE | 2022-09-14 10:40 | USCV_ITS ---
Sourav Islas Age: 82 Gender: M : 1940 Exam Date: 09/14/2022 13:35 Ordering Phys: Pavel Cagle MD Technologist: HARRIETT Exam Location: [facility] [place] Indication: stroke BP: / HR: Rhythm: Sinus Technical Quality: Adequate MEASUREMENTS (Male / Female) Normal Values 2D ECHO LVOT Diameter 2.0 cm LA Diameter 5.0 cm M-MODE Aortic Annulus Diameter 3.0 cm LA Ao Ratio MM 1.6 MV E Point Septal Separation 0.7 cm DOPPLER TR Peak Velocity 378.8 cm/s TR Peak Gradient 57.4 mmHg Right Atrial Pressure 9.0 mmHg Pulmonary Artery Systolic Pressu 66.4 mmHg FINDINGS Left Ventricle Moderately increased left ventricular cavity size. Moderately decreased left ventricular systolic function. Left ventricular ejection fraction is estimated at 35 %. Mid to apical anteroseptal severe hypokinesis with wall thinning. Right Ventricle Moderately increased right ventricular size. Moderate to Severe pulmonary hypertension, RVSP 66.4 mmHg. Catheter/pacemaker wire in the right ventricular cavity. Right Atrium Moderately increased right atrial size. Left Atrium Moderately increased left atrial size. Mitral Valve Moderate mitral valve regurgitation. Aortic Valve Trace aortic valve regurgitation. Tricuspid Valve Rato-br-[id number] tricuspid valve regurgitation. Pulmonic Valve Structurally normal pulmonic valve without significant stenosis. There is no pulmonic regurgitation. Pericardium Normal pericardium without effusion. Aorta Normal ascending aorta dimension. IVC The inferior vena cava appears normal. CONCLUSIONS Moderately increased left ventricular cavity size. Moderately decreased left ventricular systolic function. Left ventricular ejection fraction is estimated at 35 %. Mid to apical anteroseptal severe hypokinesis with wall thinning. Moderately increased right ventricular size. Moderate to Severe pulmonary hypertension, RVSP 66.4 mmHg. Catheter/pacemaker wire in the right ventricular cavity. Moderate mitral valve regurgitation. [id number] tricuspid valve regurgitation. Tj Chung MD (Electronically Signed) Final Date: 15 September 2022 17:47 S
--- NOTE | 2022-09-14 11:00 | PC.NURSE ---
recieved from floor iv site right arm intact .. alert oriented at this time moves all extremes respirations even noted left facial gtt and speech slurred had left side weakness arm flaccid and left leg weak able to move off bed very weak .... tpa started per protocol
--- NOTE | 2022-09-14 11:18 | PC.NURSE ---
Stroke Around 0800 this morning I did my assessment on my pt, around 0820 finished assessment pt didnt show any signs of severe weakness to left side and no droop to mouth. after 0830 student nurse was helping pt use urinal when he noticed pt was severe weak and could not pull himself to edge of chair or use his left arm. I called Dr. Cagle around 0833 to let him know I was calling a stroke and I called the charge nurse to assess pt too. We noticed he had droop to left side of mouth and couldnt move his left arm. Pt was able to move both legs and lift his right arm.
--- NOTE | 2022-09-14 11:20 | PC.NURSE ---
noted improvement in weakness on left side speech not as slurred at bedside infusing tpa
[2022-09-14 11:27] LABS: Glucose Point of Care 150 mg/dL (70-110)
--- NOTE | 2022-09-14 12:08 | CTR_ITS ---
PROCEDURE INFORMATION: Exam: CT Head Without Contrast Exam date and time: 09/14/2022 12:14 PM Age: 82 years old Clinical indication: Stroke-like symptoms; Other: Loc TECHNIQUE: Imaging protocol: Computed tomography of the head without contrast. Radiation optimization: All CT scans at this facility use at least one of these dose optimization techniques: automated exposure control; mA and/or kV adjustment per patient size (includes targeted exams where dose is matched to clinical indication); or iterative reconstruction. Other technique: STROKE PROTOCOL was implemented. REPORTING DATA: Count of CT and Cardiac NM exams in prior 12 months: This patient has received 3 known CTs and 0 known cardiac nuclear medicine studies in the 12 months prior to the current study. COMPARISON: CT angio headneck* [id number] 09/14/2022 9:11 AM RADIATION DOSE METRICS: Total DLP (mGy-cm): 1110.28 FINDINGS: Brain: Symmetric caliber of the cortical sulci. Multifocal small-vessel ischemic change including punctate basal ganglia and thalamic lacunar infarcts, which can be better characterized with MRI if clinically indicated. No acute cortical infarct, mass effect, or space-occupying lesion. Cerebral ventricles: Ventriculomegaly. Paranasal sinuses: No sinus fluid. Mastoid air cells: No mastoid effusion. Bones/joints: No acute calvarial pathology. Soft tissues: Punctate cutaneous calcifications. When correlating with the previous study, no significant interval changes are present. CT/CT head wo con* [id number] IMPRESSION: Stable multifocal small-vessel ischemic change including punctate basal ganglia and thalamic lacunar infarcts, which can be better characterized with MRI if clinically indicated. ASSESSMENT: ASPECTS ([place] Stroke Program Early CT Score) is 10.
[2022-09-14 12:44] LABS: Procalcitonin 0.32 ng/mL (0-0.5); Vitamin B12 565 pg/mL (232-1245)
--- NOTE | 2022-09-14 12:45 | PC.NURSE ---
tpa almost infused and marked noted decline in status , has decreased loc ,l speech slurred droop worse on left side mouth , l leg flaccid and severe weakness in left leg
[2022-09-14 12:55] LABS: Chol HDL Ratio 4.46 mg/dL (1.0-5.00); Cholesterol 107 mg/dL (0-200); HDL Cholesterol 24 mg/dL (60-100); Iron 61 ug/dL (59-158); LDL Cholesterol Calculated 58 mg/dL (50-129); Percent Saturation 39.8 % (20-50); Total Iron Binding Capacity 153 mcg/dl; Triglycerides 123 mg/dL (0-150); Unsaturated Iron Binding 92 ug/dL (112-347); VLDL Cholestrol Calculation 25 mg/dL (0-30)
[2022-09-14 13:24] LABS: Folate Level 15.8 ng/mL (4.5-32.2)
[2022-09-14] MEDS: micafungin 100 MG in sodium chloride 0.9% (plus) 100 ML IV (13:53)
--- NOTE | 2022-09-14 15:00 | PC.NURSE ---
stat ct scan done for decrease in status...
--- NOTE | 2022-09-14 16:00 | PC.NURSE ---
report called to yissel for transfer pending at this time .
--- NOTE | 2022-09-14 16:36 | PM.TDS ---
Transfer Summary Providers Date of Admission: 09/11/22 11:48 Date of Discharge/Transfer: 09/14/22 Attending Provider at Admission: Nitish Pedraza MD Attending Provider at Transfer: Pavel Cagle MD Consults: ID: Dr. Rankin Telemetry neurology: [facility] Primary Care Provider: Mari Avitia MD Transfer Plans: Anticipated date of transfer: 09/14/22. Receiving Facility: [facility] Receiving Provider: Dr. Sorensen. Diagnoses at Discharge Discharge Diagnosis (1) Fever and neutropenia: Status: Acute (2) Pneumonia: Status: Acute (3) Myelodysplastic syndrome with excess blasts-2: Status: Acute (4) Diabetes: Status: Acute (5) Hypokalemia: Status: Acute (6) Ischemic congestive cardiomyopathy: Status: Acute (7) Pancytopenia: Status: Acute (8) Stroke: Status: Acute (9) Stenosis of right internal carotid artery: Status: Acute (10) Stenosis of right external carotid artery: Status: Acute (11) Stenosis of left vertebral artery: Status: Acute (12) Biventricular ICD (implantable cardioverter-defibrillator) in place: Status: Acute (13) Chronic atrial fibrillation: Status: Acute (14) Goals of care, counseling/discussion: Status: Acute Reason for Visit Reason for Visit FEVER/ DEHYDRATION Hospital Course Hospital Course Sourav Islas Sr is a 82 year old male with underlying MDS with unfavorable characteristics who recently underwent treatment on August 19 with initiation of azacitidine and venetoclax presented to the emergency department with generalized weakness, temperature of 100.5.? He had been instructed by oncology should the temperature reached this degree with his pancytopenia that he might have systemic infection.? He has not really been coughing.? He reports he feels occasional shortness of breath.? No vomiting or diarrhea.? No chest pain or abdominal pain.? No headache or neck pain.? Reports he has not been eating or drinking as well as he just does not feel like it.? He has been on Cipro and acyclovir prophylactically.? He does not have a port. Additional history was given by his . Patient was admitted to the hospital further evaluation and management of neutropenic fever. He was started on broad-spectrum antibiotics and antifungals. He remained hemodynamically stable. His blood cultures so far remained stable. CT chest abdomen pelvis was done which is concerning for possible pneumonia and typhilitis. On morning of September 24, patient was found to have acute weakness at 915 of left upper limb along with drooping of the face on the left side with last known normal at around 8:30 AM and a code stroke was called. He underwent stat CT head and CTA head and neck which is concerning for right high parietal stroke with severe ostial stenosis of right ICA and ECA along with left vertebral artery. Care were discussed in detail with [facility] telestroke service who given high NIH score recommended patient to get tPA. Possibility of septic emboli were low as patient did not have a fever for over 36 hours and blood cultures so far had remained negative over last 3 days. Merit versus risks of tPA were discussed negative with patient and patient's spouse who is the DPOA at bedside. Patient understood the same and was agreeable for treatment. As per the recommendation from telestroke patient was also referred for possibility of right carotid artery endarterectomy versus balloon angioplasty. Telestroke team had a detailed discussion with patient and patient's at bedside via televisit for need for the procedure. Patient verbalized understanding and wanted to go ahead with the treatment plan. Further goals of care discussion were discussed in detail again. We discussed that this is a fairly complex procedure and given his poor baseline physical and mental lifestyle chances of adverse event or high chances of full recovery are low. Patient verbalized understanding and wanted to go ahead with the plan. Physical Exam Narrative: EXAM NARRATIVE: General: No acute distress, AO x3, NC oxygen supplementation, Chronically sick appearing, pallor present, frail HEENT: PERRLA, pupils bilaterally equal and reactive Chest:Bronchial breath sounds b/l ,decreased air entry, equal good air entry bilaterally, no more fine basal crackles CVS: S1-S2 regular, no murmurs, no tachycardia, no gallops, no rubs Abdomen: Soft, nontender, no organomegaly, bowel sounds present, morbidly obese Neuro: Left upper limb flaccid weakness 1/5, right lower limb 3/5, left upper and lower limb normal, facial droop to left, pupils bilaterally equal and mildly reactive TS Data Studies Completed and Pending Pending at discharge Category Date Time Status 1-3 Beta D Glucan [Fungitell Glucan Assay (Blood)] Lab 09/13/22 04:50 Received Routine Blood Culture AM LABS Lab 09/15/22 04:00 Ordered Blood Culture Stat Lab 09/11/22 08:04 Results Complete Blood Count w/Auto AM LABS Lab 09/15/22 04:00 Ordered Complete Blood Count w/Auto AM LABS Lab 09/16/22 04:00 Ordered Complete Blood Count w/Auto AM LABS Lab 09/17/22 04:00 Ordered Comprehensive Metabolic Panel AM LABS Lab 09/15/22 04:00 Ordered Comprehensive Metabolic Panel AM LABS Lab 09/16/22 04:00 Ordered Hemoglobin A1C AM LABS Lab 09/15/22 04:00 Ordered Histoplasma Galactomannan Ag Routine Lab 09/13/22 08:14 Received Pneumocystis 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 echo lmt w color / Routine Ultrasound 09/14/22 10:40 Taken Labs from last 24 hours 09/14/22 09/14/22 09/14/22 12:10 10:38 10:03 WBC RBC Hgb Hct MCV MCH MCHC RDW Plt Count MPV Neut % (Auto) Lymph % (Auto) [place] % (Auto) Eos % (Auto) Baso % (Auto) Neut # (Auto) Lymph # (Auto) [place] # (Auto) Eos # (Auto) Baso # (Auto) Nucleated RBC % (auto) Nucleated RBCs # PT 15.60 H INR 1.20 Sodium Potassium Chloride Carbon Dioxide Anion Gap BUN Creatinine GFR Calculation Glucose POC Glucose 150 H Calculated Osmolality Calcium Iron TIBC % Saturation Unsat Iron Binding Total Bilirubin AST ALT Alkaline Phosphatase Total Protein Albumin Globulin Triglycerides Cholesterol LDL Cholesterol, Calc Total VLDL Cholesterol HDL Cholesterol Cholesterol/HDL Ratio Vitamin B12 Folate 15.8 Procalcitonin 09/14/22 09/14/22 09/14/22 09:01 06:33 03:32 WBC RBC Hgb Hct MCV MCH MCHC RDW Plt Count MPV Neut % (Auto) Lymph % (Auto) [place] % (Auto) Eos % (Auto) Baso % (Auto) Neut # (Auto) Lymph # (Auto) [place] # (Auto) Eos # (Auto) Baso # (Auto) Nucleated RBC % (auto) Nucleated RBCs # PT INR Sodium Potassium Chloride Carbon Dioxide Anion Gap BUN Creatinine GFR Calculation Glucose POC Glucose 159 H 130 H Calculated Osmolality Calcium Iron 61 TIBC 153 % Saturation 39.8 Unsat Iron Binding 92 L Total Bilirubin AST ALT Alkaline Phosphatase Total Protein Albumin Globulin Triglycerides 123 Cholesterol 107 LDL Cholesterol, Calc 58 Total VLDL Cholesterol 25 HDL Cholesterol 24 L Cholesterol/HDL Ratio 4.46 Vitamin B12 565 Folate Procalcitonin 0.32 09/14/22 09/14/22 09/13/22 03:32 03:32 21:00 WBC 0.6 L* RBC 3.57 L Hgb 11.5 L Hct 35.3 L MCV 98.9 H MCH 32.2 MCHC 32.6 RDW 19.1 H Plt Count 109 L MPV 11.0 H Neut % (Auto) 11.0 Lymph % (Auto) 74.5 [place] % (Auto) 9.1 Eos % (Auto) 1.8 Baso % (Auto) 1.8 Neut # (Auto) 0.06 L* Lymph # (Auto) 0.4 L [place] # (Auto) 0.1 L Eos # (Auto) 0.0 Baso # (Auto) 0.0 Nucleated RBC % (auto) 0 Nucleated RBCs # 0.0 PT INR Sodium 142 Potassium 3.8 Chloride 110 H Carbon Dioxide 20 L Anion Gap 15.8 BUN 23 Creatinine 0.8 GFR Calculation Not Reportable Glucose 128 H POC Glucose 120 H Calculated Osmolality 299 H Calcium 8.8 Iron TIBC % Saturation Unsat Iron Binding Total Bilirubin 0.4 AST 25 ALT 18 Alkaline Phosphatase 65 Total Protein 5.7 L Albumin 2.8 L Globulin 2.9 Triglycerides Cholesterol LDL Cholesterol, Calc Total VLDL Cholesterol HDL Cholesterol Cholesterol/HDL Ratio Vitamin B12 Folate Procalcitonin Microbiology 09/13/22 11:38 Urine,Voided Legionella Urinary Antigen - Final 09/13/22 11:38 Urine,Voided Bacterial Antigens - Final 09/11/22 11:40 Nose MRSA Culture - Final 09/11/22 08:04 Blood Blood Culture - Preliminary NEGATIVE TO DATE 09/11/22 08:00 Blood Blood Culture - Preliminary NEGATIVE TO DATE Completed Studies During Hospitalization Category Date Time Status CT chest abdomen pelvis [CT chest abdpel w/*[id number] Cat Scan 09/13/22 08:30 Completed ] Routine CT head wo con* [id number] Stat Cat Scan 09/14/22 12:08 Completed CTA head neck [CT angio headneck* [id number]] Stat Cat Scan 09/14/22 09:04 Completed XR chest 1V portable [id number] Stat Exams 09/11/22 07:46 Completed Laboratory Last Values WBC 0.6 10^3/uL (4.0-10.0) L* 09/14/22 03:32 RBC 3.57 10^6/uL (4.1-5.3) L 09/14/22 03:32 Hgb 11.5 g/dL (11.7-16.6) L 09/14/22 03:32 Hct 35.3 % (42.0-52.0) L 09/14/22 03:32 MCV 98.9 fl (80-94) H 09/14/22 03:32 MCH 32.2 pg (28.0-34.0) 09/14/22 03:32 MCHC 32.6 g/dL (30.0-36.0) 09/14/22 03:32 RDW 19.1 % (12.1-15.1) H 09/14/22 03:32 Plt Count 109 10^3/cmm (130-400) L 09/14/22 03:32 MPV 11.0 fL (7.4-10.4) H 09/14/22 03:32 Neut % (Auto) 11.0 % 09/14/22 03:32 Lymph % (Auto) 74.5 % 09/14/22 03:32 [place] % (Auto) 9.1 % 09/14/22 03:32 Eos % (Auto) 1.8 % 09/14/22 03:32 Baso % (Auto) 1.8 % 09/14/22 03:32 Neut # (Auto) 0.06 10^3/uL (1.8-7.7) L* 09/14/22 03:32 Lymph # (Auto) 0.4 10^3/uL (0.8-4.8) L 09/14/22 03:32 [place] # (Auto) 0.1 10^3/uL (0.2-0.9) L 09/14/22 03:32 Eos # (Auto) 0.0 10^3/uL (0.0-0.8) 09/14/22 03:32 Baso # (Auto) 0.0 10^3/uL (0.0-0.1) 09/14/22 03:32 Nucleated RBC % (auto) 0 % 09/14/22 03:32 Total Counted Cancelled 09/13/22 04:39 Atypical Lymphs % Cancelled 09/13/22 04:39 Absolute Neutrophils Cancelled 09/13/22 04:39 Segmented Neutrophils Cancelled 09/13/22 04:39 Abs Segm Neuts (Man) Cancelled 09/13/22 04:39 Band Neutrophils Cancelled 09/13/22 04:39 Abs Band Neuts (Man) Cancelled 09/13/22 04:39 Absolute Lymphocytes Cancelled 09/13/22 04:39 Lymphocytes (Manual) Cancelled 09/13/22 04:39 Monocytes (Manual) Cancelled 09/13/22 04:39 Absolute Monocytes Cancelled 09/13/22 04:39 Eosinophils (Manual) Cancelled 09/13/22 04:39 Absolute Eosinophils Cancelled 09/13/22 04:39 Basophils (Manual) Cancelled 09/13/22 04:39 Absolute Basophils Cancelled 09/13/22 04:39 Metamyelocytes Cancelled 09/13/22 04:39 Myelocytes Cancelled 09/13/22 04:39 Promyelocytes Cancelled 09/13/22 04:39 Nucleated RBCs Cancelled 09/13/22 04:39 Nucleated RBCs # 0.0 /100WBC 09/14/22 03:32 Pathologist Review Cancelled 09/13/22 04:39 Hypersegmented Polys Cancelled 09/13/22 04:39 Blast Cells Cancelled 09/13/22 04:39 Smudge Cells Cancelled 09/13/22 04:39 Toxic Granulation Cancelled 09/13/22 04:39 Toxic Vacuolation Cancelled 09/13/22 04:39 Dohle Bodies Cancelled 09/13/22 04:39 Isadora Rods Cancelled 09/13/22 04:39 Platelet Estimate Cancelled 09/13/22 04:39 Giant Platelets Cancelled 09/13/22 04:39 Polychromasia Cancelled 09/13/22 04:39 Hypochromasia Cancelled 09/13/22 04:39 Poikilocytosis Cancelled 09/13/22 04:39 Basophilic Stippling Cancelled 09/13/22 04:39 Anisocytosis Cancelled 09/13/22 04:39 Microcytosis Cancelled 09/13/22 04:39 Macrocytosis Cancelled 09/13/22 04:39 Spherocytes Cancelled 09/13/22 04:39 Sickle Cells Cancelled 09/13/22 04:39 Target Cells Cancelled 09/13/22 04:39 Tear Drop Cells Cancelled 09/13/22 04:39 Ovalocytes Cancelled 09/13/22 04:39 Stomatocytes Cancelled 09/13/22 04:39 Helmet Cells Cancelled 09/13/22 04:39 Hdz-[place] Bodies Cancelled 09/13/22 04:39 Luis Cells Cancelled 09/13/22 04:39 Crenated Cell Cancelled 09/13/22 04:39 Acanthocytes (Spur) Cancelled 09/13/22 04:39 Rouleaux Cancelled 09/13/22 04:39 Schistocytes Cancelled 09/13/22 04:39 RBC Morph Comment Cancelled 09/13/22 04:39 PT 15.60 SECONDS (12.1-14.9) H 09/14/22 10:03 INR 1.20 (0.8-1.2) 09/14/22 10:03 Sodium 142 mmol/L (136-145) 09/14/22 03:32 Potassium 3.8 mmol/L (3.5-5.1) 09/14/22 03:32 Chloride 110 mmol/L (98-107) H 09/14/22 03:32 Carbon Dioxide 20 mmol/L (22-29) L 09/14/22 03:32 Anion Gap 15.8 (5-19) 09/14/22 03:32 BUN 23 mg/dL (8-23) 09/14/22 03:32 Creatinine 0.8 mg/dL (0.7-1.2) 09/14/22 03:32 GFR Calculation Not Reportable 09/14/22 03:32 Glucose 128 mg/dL (65-115) H 09/14/22 03:32 POC Glucose 150 mg/dL (70-110) H 09/14/22 10:38 Calculated Osmolality 299 mOsm/kg (285-295) H 09/14/22 03:32 Calcium 8.8 mg/dL (8.5-10.5) 09/14/22 03:32 Magnesium 1.9 mg/dL (1.7-2.3) 09/12/22 04:50 Iron 61 ug/dL (59-158) 09/14/22 03:32 TIBC 153 mcg/dl 09/14/22 03:32 % Saturation 39.8 % (20-50) 09/14/22 03:32 Unsat Iron Binding 92 ug/dL (112-347) L 09/14/22 03:32 Total Bilirubin 0.4 mg/dL (0.15-1.2) 09/14/22 03:32 AST 25 U/L (0-40) 09/14/22 03:32 ALT 18 U/L (0-41) 09/14/22 03:32 Alkaline Phosphatase 65 U/L (40-130) 09/14/22 03:32 Total Protein 5.7 g/dL (6.6-8.7) L 09/14/22 03:32 Albumin 2.8 g/dL (3.5-5.2) L 09/14/22 03:32 Globulin 2.9 g/dL (1.3-4.6) 09/14/22 03:32 Triglycerides 123 mg/dL (0-150) 09/14/22 03:32 Cholesterol 107 mg/dL (0-200) 09/14/22 03:32 LDL Cholesterol, Calc 58 mg/dL (50-129) 09/14/22 03:32 Total VLDL Cholesterol 25 mg/dL (0-30) 09/14/22 03:32 HDL Cholesterol 24 mg/dL (60-100) L 09/14/22 03:32 Cholesterol/HDL Ratio 4.46 mg/dL (1.0-5.00) 09/14/22 03:32 Vitamin B12 565 pg/mL (232-1245) 09/14/22 03:32 Folate 15.8 ng/mL (4.5-32.2) 09/14/22 12:10 Procalcitonin 0.32 ng/mL (0-0.5) 09/14/22 03:32 TSH 0.53 uIU/mL (0.27-4.20) 09/11/22 07:32 Urine Color Yellow (Yellow) 09/11/22 23:00 Urine Appearance Clear (CLEAR) 09/11/22 23:00 Urine pH 5 (5-7) 09/11/22 23:00 Ur Specific [place] 1.015 (1.005-1.030) 09/11/22 23:00 Urine Protein Neg (Negative) 09/11/22 23:00 Urine Glucose (UA) Norm (Normal) 09/11/22 23:00 Urine Ketones Negative (Negative) 09/11/22 23:00 Urine Blood Neg (Negative) 09/11/22 23:00 Urine Nitrate Negative (Negative) 09/11/22 23:00 Urine Bilirubin Neg (Negative) 09/11/22 23:00 Urine Urobilinogen Neg mg/dL (Negative) 09/11/22 23:00 Ur Leukocyte Esterase Negative (Negative) 09/11/22 23:00 Vancomycin Trough 15.8 ug/mL (10-15) H 09/13/22 04:39 Coronavirus 229E (PCR) Not detected (NOT DETECT) 09/11/22 10:46 Influenza Type A Ag negative (Negative) 09/11/22 10:46 Influenza Type B Ag negative (Negative) 09/11/22 10:46 SARS-CoV-2 (PCR) Not detected (NOT DETECT) 09/11/22 10:46 Blood Type B Positive 09/12/22 08:30 Rho(D) Type Positive 09/12/22 08:30 Antibody Screen Negative 09/12/22 08:30 Crossmatch See Detail 09/12/22 08:30 Radiology Impressions Chest X-Ray 09/11/22 07:46 IMPRESSION: 1. Diffuse airspace and interstitial infiltrates throughout both lung coffman. This probably represents pneumonia however acute pulmonary edema could have this appearance. 2. Mild cardiac enlargement. Chest/Abdomen/Pelvis CT 09/13/22 08:30 IMPRESSION: 1. Diffuse coarse interstitial and hazy ground glass infiltrates throughout both lungs with a few tree-in-bud opacities worse in the upper lobes. This is likely infectious or inflammatory. Recommend correlation for pneumonia. Some this may be due to edema. 2. Small bilateral pleural effusions. 3. No focal consolidation. 4. No mediastinal or hilar lymphadenopathy. 5. Intraluminal enhancement in the cecum with inspissated secretions is nonspecific. Intraluminal cecal mass not excluded. Recommend follow-up with colonoscopy. 6. Evidence of prior partial sigmoidectomy. 7. Small amount of free fluid in the pelvis. 8. No other acute findings. Head/Neck CTA 09/14/22 09:04 IMPRESSION: 1. No acute intracranial abnormality. 2. No large vessel stenosis or occlusion. IMPRESSION: 1. Severe stenosis of the right carotid bulb and proximal right internal carotid artery. 2. Severe stenosis at the ostium of the right external carotid artery. 3. Severe stenosis at the ostium of the left vertebral artery. 4. Imaging findings of pulmonary edema with bilateral pleural effusions. Pneumonia should be excluded clinically. REFERENCES: NASCET CRITERIA. The degree of stenosis in the cervical segment of the internal carotid artery is based on NASCET criteria. Normal is no stenosis. Mild is less than 50% stenosis. Moderate is 50-69% stenosis. Severe is 70% to 99% stenosis. Total occlusion is no detectable patent lumen. ADDENDUM: 09/14/22 0953 IMPRESSION: 1. Imaging findings concerning for infarct in the right high parietal region. 2. No large vessel stenosis or occlusion. IMPRESSION: 1. Severe stenosis of the right carotid bulb and proximal right internal carotid artery. 2. Severe stenosis at the ostium of the right external carotid artery. 3. Severe stenosis at the ostium of the left vertebral artery. 4. Imaging findings of pulmonary edema with bilateral pleural effusions. Pneumonia should be excluded clinically. REFERENCES: NASCET CRITERIA. The degree of stenosis in the cervical segment of the internal carotid artery is based on NASCET criteria. Normal is no stenosis. Mild is less than 50% stenosis. Moderate is 50-69% stenosis. Severe is 70% to 99% stenosis. Total occlusion is no detectable patent lumen. Head CT 09/14/22 12:08 IMPRESSION: Stable multifocal small-vessel ischemic change including punctate basal ganglia and thalamic lacunar infarcts, which can be better characterized with MRI if clinically indicated. ASSESSMENT: ASPECTS ([place] Stroke Program Early CT Score) is 10. Recent Clincial Data Last Vital Signs Temp 98 F 09/14/22 10:40 Pulse 70 09/14/22 16:02 Resp 15 09/14/22 16:02 BP 148/66 09/14/22 16:02 Pulse Ox 95 09/14/22 16:00 O2 Del Method 09/14/22 08:00 O2 Flow Rate 2 09/14/22 08:00 Vital Signs Temp Pulse Resp BP Pulse Ox O2 Del Method O2 Flow Rate 09/14/22 16:00 70 19 H 133/59 95 09/14/22 15:30 70 20 H 132/63 95 09/14/22 15:00 78 21 H 148/66 09/14/22 16:02 70 15 148/66 09/14/22 14:45 70 22 H 148/66 94 09/14/22 14:30 71 18 148/66 95 09/14/22 14:15 70 16 152/67 95 09/14/22 14:00 70 21 H 152/67 92 09/14/22 13:45 70 19 H 122/63 94 09/14/22 13:30 70 20 H 122/63 93 09/14/22 13:15 70 19 H 129/63 92 09/14/22 13:00 72 19 H 129/63 93 09/14/22 12:45 70 18 92 09/14/22 12:30 70 18 93 09/14/22 12:22 75 17 91 09/14/22 12:00 70 18 128/63 95 09/14/22 11:45 70 18 129/62 96 09/14/22 11:30 70 15 138/71 97 09/14/22 11:15 70 21 H 132/68 96 09/14/22 11:00 70 16 129/66 90 09/14/22 10:45 70 9 L 09/14/22 10:30 70 13 09/14/22 10:15 70 12 09/14/22 10:00 70 0 L 09/14/22 09:45 70 6 L 09/14/22 09:30 70 16 09/14/22 09:15 71 3 L 09/14/22 09:00 70 8 L 09/14/22 08:45 73 18 09/14/22 08:30 72 8 L 09/14/22 08:15 70 17 09/14/22 08:00 70 17 09/14/22 07:45 70 18 09/14/22 07:30 70 18 09/14/22 07:15 70 18 09/14/22 07:00 70 19 H 09/14/22 06:45 70 21 H 09/14/22 06:30 70 6 L 09/14/22 06:15 70 15 09/14/22 06:00 70 15 09/14/22 05:45 70 15 09/14/22 05:30 70 20 H 09/14/22 05:15 78 12 09/14/22 05:00 70 19 H 09/14/22 04:45 70 21 H 09/14/22 14:00 70 09/14/22 14:47 15 09/14/22 10:40 98 F 71 123/71 95 09/14/22 08:00 69 96 Nasal Cannula 2 09/14/22 08:00 98 F 69 15 126/64 96 Intake & Output/Weight 09/12/22 09/13/22 09/14/22 09/15/22 06:59 06:59 06:59 06:59 Intake Total 1822.5 / 1822.5 2770 / 2770 1820 / 1820 115.4 / 115.4 Output Total 950 / 950 600 / 600 Balance 1822.5 / 1822.5 1820 / 1820 1220 / 1220 115.4 / 115.4 Weight 73.437 kg Vitals Last Vital Signs Temp 98 F 09/14/22 10:40 Pulse 70 09/14/22 16:02 Resp 15 09/14/22 16:02 BP 148/66 09/14/22 16:02 Pulse Ox 95 09/14/22 16:00 O2 Del Method 09/14/22 08:00 O2 Flow Rate 2 09/14/22 08:00 TS Medications Medications Acetaminophen (Acetaminophen 325 Mg Tablet) 650 mg PO Q6H PRN PRN Reason: Mild/Mod Pain Or Temp >/= 101 Last Admin: 09/12/22 21:22 Dose: 650 mg Hydrocodone Bitart/Acetaminophen (Hydrocodone-Acetaminophen 7.5-325 Mg Tablet) 2 tab PO Q4H PRN PRN Reason: MODERATE pain Last Admin: 09/14/22 06:00 Dose: 2 tab Acyclovir (Acyclovir 400 Mg Tablet) 400 mg PO BID [facility] Last Admin: 09/14/22 13:25 Dose: Not Given Aspirin (Aspirin 81 Mg Ec Tablet) 81 mg PO DAILY [facility] Atorvastatin Calcium (Atorvastatin 40 Mg Tablet) 80 mg PO BEDTIME [facility] Last Admin: 09/14/22 13:24 Dose: Not Given Dextrose (Dextrose 50% Syringe 50 Ml) 25 ml IVP ONCE PRN; Protocol PRN Reason: hypoglycemia protocol Dextrose (Dextrose 50% Syringe 50 Ml) 50 ml IVP PRN PRN; Protocol PRN Reason: hypoglycemia protocol Donepezil HCl (Donepezil 5 Mg Tablet) 5 mg PO QPM [facility] Last Admin: 09/13/22 17:55 Dose: 5 mg Glucagon (Glucagon 1 Mg/Ml Inj 1 Ml) 1 mg IM ONCE PRN; Protocol PRN Reason: Adult Acute Hypoglycemia Prot. Cefepime HCl 2,000 mg/ Sodium (Chloride) 50 mls @ 100 mls/hr IV Q8H [facility]; Protocol Last Admin: 09/14/22 14:55 Dose: 100 mls/hr Dextrose (D5w) 500 mls @ 100 mls/hr IV ONCE PRN; Protocol PRN Reason: Adult Acute Hypoglycemia Prot Vancomycin/PEG/NADA/Lysine/Water (Vancocin) 1,250 mg in 250 mls @ 200 mls/hr IV Q12H [facility] Last Infusion: 09/14/22 06:56 Dose: Infused Insulin Human Lispro (Insulin Lispro 100 Unit/1 Ml) 0 unit SUBCUT WM&BEDTIME [facility]; Protocol Last Admin: 09/14/22 13:27 Dose: Not Given Magnesium Oxide (Magnesium Oxide 400 Mg Tablet) 400 mg PO QPM [facility] Last Admin: 09/13/22 17:55 Dose: 400 mg Metoprolol Tartrate (Metoprolol Tartrate 25 Mg Tablet) 12.5 mg PO QPM [facility] Last Admin: 09/13/22 17:55 Dose: 12.5 mg Non-Formulary Medication Dorzolamide/Timolol Op Soln 10 Ml Btl 1 each EYE-BOTH BID [facility] Non-Formulary Medication ( Latanoprost 0.005%) 1 drop EYEAFF BEDTIME [facility] Last Admin: 09/13/22 21:59 Dose: 1 drop Ondansetron HCl (Ondansetron 2 Mg/Ml Sdv 2 Ml) 4 mg IVP Q6H PRN PRN Reason: vomiting, or N/V if npo Last Admin: 09/13/22 12:41 Dose: 4 mg Pantoprazole Sodium (Pantoprazole Dr 40 Mg Tablet) 40 mg PO QAM [facility] Last Admin: 09/14/22 05:02 Dose: 40 mg Sacubitril/Valsartan (Sacubitril/Valsartan 24-26 Mg Tablet) [facility] Last Admin: 09/14/22 05:02 Dose: 1 each Sertraline HCl (Sertraline 100 Mg Tablet) 100 mg PO [facility] Last Admin: 09/14/22 05:02 Dose: 100 mg Spironolactone (Spironolactone 25 Mg Tablet) 25 mg PO [facility] Last Admin: 09/14/22 05:02 Dose: 25 mg Discontinued Medications Aspirin (Aspirin 325 Mg Ec Tablet) 325 mg PO ONCE ONE Stop: 09/14/22 11:34 Last Admin: 09/14/22 13:24 Dose: Not Given Furosemide (Furosemide 10 Mg/Ml Sdv 4ml) 40 mg IVP ONCE ONE Stop: 09/13/22 08:11 Last Admin: 09/13/22 09:39 Dose: 40 mg Ceftazidime 1,000 mg/ Sodium (Chloride) 50 mls @ 150 mls/hr IV Q8H [facility]; Protocol Last Infusion: 09/11/22 10:35 Dose: Infused Vancomycin HCl 1,000 mg/ (Sodium Chloride) 250 mls @ 250 mls/hr IV ONCE ONE; Protocol Stop: 09/11/22 09:34 Last Infusion: 09/11/22 10:10 Dose: Infused Fluconazole (Diflucan Premix) 200 mg in 100 mls @ 100 mls/hr IV Q24H [facility] Last Infusion: 09/12/22 13:30 Dose: Infused Sodium Chloride (Sodium Chloride 0.9%) 1,000 mls @ 75 mls/hr IV .[id number] [facility] Last Infusion: 09/13/22 11:20 Dose: Infused Sodium Chloride (Sodium Chloride 0.9% (100 Ml)) Confirm Administered Dose 100 mls @ as directed .ROUTE .STK-MED ONE Stop: 09/12/22 12:26 Last Infusion: 09/12/22 14:27 Dose: Infused Sodium Chloride (Sodium Chloride 0.9% (100 Ml)) Confirm Administered Dose 100 mls @ as directed .ROUTE .STK-MED ONE Stop: 09/12/22 17:59 Last Admin: 09/12/22 22:01 Dose: Not Given Micafungin Sodium 100 mg/ (Sodium Chloride) 100 mls @ 100 mls/hr IV Q24H [facility] Last Admin: 09/14/22 13:53 Dose: 100 mls/hr Alteplase, Recombinant (Activase) 100 mg in 100 mls @ 0 mls/hr IV .Q0M ONE; Protocol Stop: 09/14/22 10:41 Last Titration: 09/14/22 13:28 Dose: Infused Iohexol (Iohexol 350 Mg/Ml 500 Ml Btl (Per Ml)) 0 ml IV ONCE ONE Stop: 09/13/22 15:00 Last Admin: 09/13/22 14:59 Dose: 100 ml Iohexol (Iohexol 350 Mg/Ml 500 Ml Btl (Per Ml)) 0 ml IV ONCE ONE Stop: 09/14/22 09:22 Last Admin: 09/14/22 09:21 Dose: 100 ml Non-Formulary Medication (Travoprost [Travatan Z]) 1 drop EYEAFF BEDTIME GALL[facility] Perflutren Protein Type A Microsphe (Perflutren Protein-A Microsphr 0.22 Mg/Ml Sdv 3 Ml) 0 ml IV ONCE ONE Stop: 09/14/22 10:46 Pharmacy Profile Note (Formulary Statin) each PO QPM G[facility]O Potassium Chloride (Potassium Chloride Er 20 Meq Tablet) 40 meq PO ONCE ONE Stop: 09/11/22 09:38 Last Admin: 09/11/22 10:05 Dose: 40 meq Sodium Chloride (Sodium Chloride 0.9% 100 Ml Bag) 50 ml IV PRN PRN PRN Reason: Blood transfusion prime and flush Stop: 09/13/22 07:42 Allergies prochlorperazine [From Compazine] Allergy (Verified 09/11/22 09:26) ADR-Itching atorvastatin Adverse Reaction (Unknown, Verified 09/11/22 09:26) muscle cramps rivaroxaban [From Xarelto] Adverse Reaction (Unknown, Verified 09/11/22 09:26) GI bleed Home Medications dorzolamide 22.3 mg-timolol 6.8 mg/mL eye drops 1 drop ophthalmic (eye) BID 11/17/19 [History Confirmed 09/11/22] magnesium oxide 250 mg PO QPM 11/17/19 [History Confirmed 09/11/22] multivitamin 1 tab PO QPM 11/17/19 [History Confirmed 09/11/22] pantoprazole 40 mg tablet,delayed release 40 mg PO QAM 11/17/19 [History Confirmed 09/11/22] travoprost 0.004 % eye drops (Travatan Z) 1 drp ophthalmic (eye) BEDTIME 11/17/19 [History Confirmed 09/11/22] garlic 1,000 mg capsule (garlic oil) 1,000 mg PO QPM 05/22/20 [History Confirmed 09/11/22] metoprolol tartrate 25 mg tablet 12.5 mg PO QPM 05/22/20 [History Confirmed 09/11/22] meloxicam 15 mg tablet 15 mg PO DAILY PRN Pain 07/24/20 [History Confirmed 09/11/22] sertraline 100 mg tablet 100 mg PO QAM 07/24/20 [History Confirmed 09/11/22] donepezil 5 mg tablet 5 mg PO QPM 05/27/22 [History Confirmed 09/11/22] sacubitril 24 mg-valsartan 26 mg tablet (Entresto) 1 tab PO QAM 05/27/22 [History Confirmed 09/11/22] acyclovir 400 mg tablet 400 mg PO BID #60 tabs 08/19/22 [Rx Confirmed 09/11/22] lorazepam 1 mg tablet 0.5 - 1 mg PO Q6H PRN Severe Nausea #30 tabs 08/19/22 [Rx Confirmed 09/11/22] hydrocodone 7.5 mg-acetaminophen 325 mg tablet 2 tab PO Q4H PRN pain 20 days #60 tabs 09/02/22 [Rx Confirmed 09/11/22] ondansetron HCl 4 mg tablet 4 mg PO Q6H PRN nausea and vomiting #30 tabs 09/09/22 [Rx Confirmed 09/11/22] venetoclax 100 mg tablet See Rx Instructions PO DAILY #51 tabs 09/10/22 [Rx Confirmed 09/11/22] cholecalciferol (vitamin D3) 125 mcg (5,000 unit) tablet (Vitamin D3) 125 mcg PO QPM 09/11/22 [History Confirmed 09/11/22] ciprofloxacin HCl 500 mg tablet 500 mg PO BID 09/11/22 [History Confirmed 09/11/22] diphenhydramine HCl 25 mg capsule (Benadryl) 25 - 50 mg PO .EVERY 4-6 HOURS PRN Itching 09/11/22 [History Confirmed 09/11/22] lutein 20 mg-zeaxanthin 1,000 mcg capsule 1 cap PO DAILY@12 09/11/22 [History Confirmed 09/11/22] metformin 1,000 mg tablet 500 mg PO QAM 09/11/22 [History Confirmed 09/11/22] omega-3 fatty acids 1,000 mg capsule 1,000 mg PO QPM 09/11/22 [History Confirmed 09/11/22] potassium gluconate 595 mg (99 mg) tablet 99 mg PO DAILY@12 09/11/22 [History Confirmed 09/11/22] simvastatin 10 mg tablet (Zocor) 5 mg PO QPM 09/11/22 [History Confirmed 09/11/22] spironolactone 25 mg tablet 25 mg PO QAM 09/11/22 [History Confirmed 09/11/22] Discharge Plan Discharge Patient Disposition: Home Condition: Stable Prescriptions: No Action pantoprazole 40 mg tablet,delayed release (DR/EC) 40 mg PO QAM travoprost [Travatan Z] 0.004 % drops 1 drp ophthalmic (eye) BEDTIME Rx Instructions: each eye dorzolamide-timolol 22.3-6.8 mg/mL drops 1 drop ophthalmic (eye) BID multivitamin Tablet 1 tab PO QPM magnesium oxide 250 mg magnesium tablet 250 mg PO QPM sertraline 100 mg tablet 100 mg PO QAM garlic [garlic oil] 1,000 mg capsule 1,000 mg PO QPM metoprolol tartrate 25 mg tablet 12.5 mg PO QPM meloxicam 15 mg tablet 15 mg PO DAILY PRN (Reason: Pain) Entresto 24-26 mg tablet 1 tab PO QAM donepezil 5 mg tablet 5 mg PO QPM acyclovir 400 mg tablet 400 mg PO BID Qty: 60 2RF lorazepam 1 mg tablet 0.5 - 1 mg PO Q6H PRN (Reason: Severe Nausea) Qty: 30 3RF ondansetron HCl 4 mg tablet 4 mg PO Q6H PRN (Reason: nausea and vomiting) Qty: 30 1RF hydrocodone-acetaminophen 7.5-325 mg tablet 2 tab PO Q4H PRN (Reason: pain) 20 Days Qty: 60 0RF venetoclax 100 mg tablet See Rx Instructions PO DAILY Qty: 51 0RF Rx Instructions: 1 tablet day 1, 2 tablets day 2, 4 tablets on days 3-14 Fish Oil Concentrate 1,000 mg Capsule 1,000 mg PO QPM Zocor 10 mg Tablet 5 mg PO QPM Benadryl 25 mg Capsule 25 - 50 mg PO .EVERY 4-6 HOURS PRN (Reason: Itching) metformin 1,000 mg Tablet 500 mg PO QAM potassium gluconate 595 mg (99 mg) Tablet 99 mg PO DAILY@12 Vitamin D3 125 mcg (5,000 unit) Tablet 125 mcg PO QPM lutein-zeaxanthin 20 mg- 1,000 mcg Capsule 1 cap PO DAILY@12 ciprofloxacin HCl 500 mg tablet 500 mg PO BID Rx Instructions: if signs of infection increase to twice daily x 7 days then resume at once daily spironolactone 25 mg tablet 25 mg PO QAM Discharge Orders: Transfer Out of Facility (Order); Ordered 09/14/22 Ordered By: Pavel Cagle Other Ambulatory Orders: DME: [employer] (Order) Location: None Selected Ordered By: Nitish Pedraza DME: Wheelchair (Order) Location: None Selected Ordered By: Nitish Pedraza Referrals: Mari Avitia MD [Primary Care Provider] - Discharge Diet: As Directed Discharge Activity: Resume usual activity and Increase activity as tolerated Patient Instructions: Opioid Safety Transfer Attestations Time Spent in Transfer Care: critical care time Critical Care Time (min): 110 Quality Metrics Clinical Quality Measures [ No reported AMI, CVA or VTE this stay] Coding Level of Care Code Critical Care >/= 30 minutes Critical care time (in minutes): 110 The high probability of a clinically significant, sudden or life threatening deterioration, as referenced in this documentation, required my full and direct attention, intervention and personal management. The critical care time shown is in addition to time spent performing any reported separately billable procedures and includes the following: [x] Data and vital sign review and interpretation [x] Patient assessment, examination and intervention [x] Medication orders and management [x] Patient/Family updates as able [x] Care Coordination and Documentation. Other Coding Information This patient has a high probability of clinically significant, sudden or life threatening deterioration of the patient's (neurological/pulmonary/cardiac/renal/ID/endocrine) systems required my full, direct attention, the highest level of physician preparedness for urgent intervention and personal management. I managed/supervised life or organ supporting interventions that required frequent physician assessment. I devoted my full attention in the ICU to the direct care of this patient for the period of time indicated above. Time I spent with family or surrogate(s) is included only if the patient was incapable of providing necessary information or participating in decision making. This time includes the following services provided: Telemetry review CTA head and neck, CT head review Hemodynamic interpretation, assessment and management Review and interpretation of CXR Review and interpretation of lab values Review and interpretation of microbiologic data and culture results Review of medications and administration Review and interpretation of Nutrition requirements and management Discussion of management with other consultants and services Clinical update to family members Diagnoses Fever and neutropenia D70.9; R50.81 Pneumonia J18.9 Myelodysplastic syndrome with excess blasts-2 D46.22 Diabetes E11.9 Hypokalemia E87.6 Ischemic congestive cardiomyopathy I25.5; I42.0 Pancytopenia D61.818 Stroke I63.9 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
--- NOTE | 2022-09-14 17:27 | PC.NURSE ---
sent with family air vac pt
[2022-09-18 00:20] LABS: Histoplasma Galactomannan Ag <0.2 ng/mL
[2022-09-18 17:29] LABS: Fungitell 1-3-B Glucan Assay <31 pg/mL; Interpretation NEGATIVE
--- NOTE | 2022-09-18 18:53 | PM.PN ---
Subjective Subjective: Infectious disease progress note via telehealth this morning patient was found to have acute weakness of the left upper extremity following which a code stroke was called. Stat CT and CTA of the head and neck was performed which was concerning for a right high parietal stroke with severe ostial stenosis of the right side. Patient received tPA. Alternate concern for septic emboli, however currently blood cultures all remain negative. Patient is to be transferred to a higher center later today. Medications: Reviewed: Yes Vitals/I&O/Wt Last Vital Signs Temp 98 F 09/14/22 10:40 Pulse 72 09/14/22 16:30 Resp 22 H 09/14/22 16:30 BP 161/72 09/14/22 16:30 Pulse Ox 94 09/14/22 16:30 O2 Del Method 09/14/22 08:00 O2 Flow Rate 2 09/14/22 08:00 Physical Exam Narrative: General: No acute distress, AO x3 HEENT: PERRLA, pupils bilaterally equal and reactive, pallors not present Chest: Normal vesicular breath sounds, no added sounds, equal good air entry bilaterally CVS: S1-S2 regular, no murmurs, no tachycardia, no gallops, no rubs Abdomen: Soft, nontender, no organomegaly, bowel sounds present Neuro: No focal deficits, no facial deformity, AO x3, power 5/5 in all limbs Data 09/14/22 03:32 09/14/22 03:32 A&P Assessment and plan (1) Fever and neutropenia: (2) Pneumonia: Plan 52-year-old male with MDS recently started on chemotherapy presenting with fever and neutropenia, not resolved with outpatient treatment with ciprofloxacin. No localizing clinical symptoms, however on evaluation has been found to have chest x-ray with bilateral infiltrates and CT abd/pelvis with intraluminal enhancement in the cecum possible typhilitis. . He is currently on treatment with cefepime and vancomycin Blood cx negative thus far This am diagnosed with acute CVA he is being planned to be transferred to higher center today Thank you for this consult, kemi gee with any further questions or concerns Attestations Medical Necessity Statement*: per admitting Coding Level of Care Code Acute Code for Chg Fwd Diagnoses Fever and neutropenia D70.9; R50.81 Pneumonia J18.9
== END 2022-09-14 16:15 | disposition short-term general hospital (02) | DRG 808 ==
LOC: ER 08:30 → MEDSURG 11:49 → ICU 09-14 10:52
PROVIDERS: Family Medicine; Admitting Provider Internal Medicine; Emergency Provider Family Medicine; PCP Family Medicine; Visit Provider Student in an Organized Health Care Education/Training Program
DX: D70.9 Neutropenia, unspecified (principal); I63.231 Cerebral infarction due to unspecified occlusion or stenosis of right carotid arteries; J18.9 Pneumonia, unspecified organism; R47.01 Aphasia; I48.20 Chronic atrial fibrillation, unspecified; R29.810 Facial weakness; G83.24 Monoplegia of upper limb affecting left nondominant side; I25.10 Atherosclerotic heart disease of native coronary artery without angina pectoris; Z95.1 Presence of aortocoronary bypass graft; D46.9 Myelodysplastic syndrome, unspecified; Z79.899 Other long term (current) drug therapy; E11.9 Type 2 diabetes mellitus without complications; Z79.891 Long term (current) use of opiate analgesic; Z79.84 Long term (current) use of oral hypoglycemic drugs; I25.5 Ischemic cardiomyopathy; D61.818 Other pancytopenia; Z95.810 Presence of automatic (implantable) cardiac defibrillator; Z66 Do not resuscitate; E87.6 Hypokalemia; I27.20 Pulmonary hypertension, unspecified; E78.5 Hyperlipidemia, unspecified; I25.2 Old myocardial infarction; H40.9 Unspecified glaucoma; M79.7 Fibromyalgia; F32.A Depression, unspecified; F03.90 Unspecified dementia, unspecified severity, without behavioral disturbance, psychotic disturbance, mood disturbance, and anxiety
CPT/HCPCS: 36415; 36416; 36430; 70450; 70496; 70498; 71045; 71260; 74177; 80053; 80061; 80202; 81003; 82607; 82746; 82962; 83540; 83550; 83615; 83735; 84145; 84443; 85007; 85025; 85610; 86403; 86850; 86900; 86920; 87040; 87385; 87449; 87635; 87641; 87804; 93005; 93308; 93325; 96365; 96366; 96367; 96372; 97110; 97161; 97530; 99214; 99285; J0692; J0713; J1450; J1815; J1940; J2248; J2405; J2997; J3370; J7030; J7050; J8499; P9040; Q9967

== ENCOUNTER 2022-09-12 11:00 | Oncology outpatient (recurring) (ONCR) | payer OTHER, SELFPAY ==
[2022-08-19] VITALS (9 sets, daily range): BP systolic 110–127; BP diastolic 65–74; PULSE 69–74; TEMP 36.2–36.9; O2SAT 98–99
[2022-08-19 08:39] LABS: Eosinophils % 1.4 %; Hemoglobin 6.9 g/dL (11.7-16.6); Lymphocytes # 0.5 10^3/uL (0.8-4.8); Lymphocytes % 38.6 %; Mean Corpuscular HGB Conc 33.7 g/dL (30.0-36.0); Mean Corpuscular Hemoglobin 36.9 pg (28.0-34.0); Mean Corpuscular Volume 109.6 fl (80-94); Mean Platelet Volume 10.6 fL (7.4-10.4); Monocytes # 0.1 10^3/uL (0.2-0.9); Nucleated Red Blood Cells % 0 %; Red Blood Count 1.87 10^6/uL (4.1-5.3); Red Cell Distribution Width 13.8 % (12.1-15.1); White Blood Count 1.4 10^3/uL (4.0-10.0)
[2022-08-19 08:59] LABS: Alanine Aminotransferase 6 U/L (0-41); Alkaline Phosphatase 46 U/L (40-130); Anion Gap 16.7 (5-19); Aspartate Amino Transferase 13 U/L (0-40); Blood Urea Nitrogen 14 mg/dL (8-23); Calcium 9.2 mg/dL (8.5-10.5); Carbon Dioxide 22 mmol/L (22-29); Chloride 102 mmol/L (98-107); Globulin 2.6 g/dL (1.3-4.6); Glucose 159 mg/dL (65-115); Lactate Dehydrogenase 185 U/L (135-225); Osmolality Calculated 288 mOsm/kg (285-295); Potassium 3.7 mmol/L (3.5-5.1); Sodium 137 mmol/L (136-145); Total Bilirubin 0.4 mg/dL (0.15-1.2); Total Protein 6.6 g/dL (6.6-8.7)
[2022-08-19 09:48] LABS: Neutrophils # 0.77 10^3/uL (1.8-7.7)
[2022-08-19 09:49] LABS: Hematocrit 20.5 % (42.0-52.0); Platelet Count 25 10^3/cmm (130-400)
[2022-08-19] MEDS: ondansetron 4 MG Tablet 8 MG PO (10:51)
[2022-08-19] MEDS: diphenhydrAMINE 25 mg Capsule PO (11:36)
[2022-08-19] MEDS: acetaminophen 325 mg Tablet 650 MG PO (11:36)
[2022-08-19] MEDS: sodium chloride 0.9% 250 mL Bag IV (11:37)
[2022-08-19] MEDS: FUROsemide 10 mg/mL SDV 2mL 20 MG IVP (14:58)
[2022-08-20] MEDS: ondansetron 4 MG Tablet 8 MG PO (10:46)
[2022-08-21] MEDS: ondansetron 4 MG Tablet 8 MG PO (11:04)
[2022-08-21] MEDS: HYDROcodone-acetaminophen 5-325 mg Tablet 1 TAB PO (11:35)
[2022-08-22] MEDS: ondansetron 4 MG Tablet 8 MG PO (11:07)
[2022-08-22 11:42] VITALS: BP 127/65; PULSE 70; TEMP 36.6; O2SAT 97
[2022-08-22 11:50] LABS: Eosinophils # 0.1 10^3/uL (0.0-0.8); Hematocrit 28.1 % (42.0-52.0); Hemoglobin 9.1 g/dL (11.7-16.6); Lymphocytes # 0.5 10^3/uL (0.8-4.8); Lymphocytes % 27.4 %; Mean Corpuscular HGB Conc 32.4 g/dL (30.0-36.0); Mean Corpuscular Hemoglobin 33.8 pg (28.0-34.0); Mean Corpuscular Volume 104.5 fl (80-94); Mean Platelet Volume 10.5 fL (7.4-10.4); Monocytes # 0.1 10^3/uL (0.2-0.9); Monocytes % 4.9 %; Neutrophils # 1.06 10^3/uL (1.8-7.7); Neutrophils % 64.7 %; Nucleated Red Blood Cells % 0 %; Platelet Count 24 10^3/cmm (130-400); Red Blood Count 2.69 10^6/uL (4.1-5.3); Red Cell Distribution Width 18.5 % (12.1-15.1); White Blood Count 1.6 10^3/uL (4.0-10.0)
[2022-08-22 11:51] LABS: Slide Review Slide Review Perform
[2022-08-22 12:06] LABS: Alanine Aminotransferase 9 U/L (0-41); Albumin Level 4.2 g/dL (3.5-5.2); Alkaline Phosphatase 50 U/L (40-130); Anion Gap 15.2 (5-19); Aspartate Amino Transferase 16 U/L (0-40); Blood Urea Nitrogen 17 mg/dL (8-23); Calcium 9.6 mg/dL (8.5-10.5); Carbon Dioxide 24 mmol/L (22-29); Chloride 100 mmol/L (98-107); Globulin 2.8 g/dL (1.3-4.6); Glucose 131 mg/dL (65-115); Osmolality Calculated 283 mOsm/kg (285-295); Potassium 4.2 mmol/L (3.5-5.1); Sodium 135 mmol/L (136-145); Total Bilirubin 0.6 mg/dL (0.15-1.2)
[2022-08-23] MEDS: ondansetron 4 MG Tablet 8 MG PO (11:46)
[2022-08-23 13:39] VITALS: BP 132/74; PULSE 78; RESP 16; TEMP 36.4; O2SAT 98
[2022-08-26 10:18] LABS: Basophils % 0.8 %; Eosinophils % 2.4 %; Hemoglobin 8.5 g/dL (11.7-16.6); Lymphocytes # 0.4 10^3/uL (0.8-4.8); Lymphocytes % 33.6 %; Mean Corpuscular HGB Conc 32.7 g/dL (30.0-36.0); Mean Platelet Volume 8.9 fL (7.4-10.4); Monocytes # 0.1 10^3/uL (0.2-0.9); Monocytes % 4.8 %; Neutrophils % 58.4 %; Nucleated Red Blood Cells % 0 %; Red Cell Distribution Width 16.2 % (12.1-15.1); White Blood Count 1.3 10^3/uL (4.0-10.0)
[2022-08-26 10:42] LABS: Alanine Aminotransferase 7 U/L (0-41); Alkaline Phosphatase 54 U/L (40-130); Anion Gap 15.3 (5-19); Aspartate Amino Transferase 11 U/L (0-40); Blood Urea Nitrogen 16 mg/dL (8-23); Calcium 9.8 mg/dL (8.5-10.5); Carbon Dioxide 26 mmol/L (22-29); Chloride 101 mmol/L (98-107); Glucose 132 mg/dL (65-115); Lactate Dehydrogenase 186 U/L (135-225); Osmolality Calculated 291 mOsm/kg (285-295); Potassium 3.3 mmol/L (3.5-5.1); Sodium 139 mmol/L (136-145); Total Bilirubin 0.6 mg/dL (0.15-1.2)
[2022-08-26 11:07] LABS: Neutrophils # 0.73 10^3/uL (1.8-7.7); Platelet Count 26 10^3/cmm (130-400); Slide Review Slide Review Perform
[2022-08-26] MEDS: ondansetron 4 MG Tablet 8 MG PO (12:12)
[2022-08-27] MEDS: ondansetron 4 MG Tablet 8 MG PO (10:06)
[2022-08-30 09:14] LABS: Eosinophils % 2.9 %; Hematocrit 23.4 % (42.0-52.0); Hemoglobin 7.9 g/dL (11.7-16.6); Lymphocytes # 0.4 10^3/uL (0.8-4.8); Lymphocytes % 37.3 %; Mean Corpuscular HGB Conc 33.8 g/dL (30.0-36.0); Mean Corpuscular Hemoglobin 35.1 pg (28.0-34.0); Mean Platelet Volume 10.5 fL (7.4-10.4); Monocytes % 3.9 %; Neutrophils % 53.9 %; Nucleated Red Blood Cells % 0 %; Red Blood Count 2.25 10^6/uL (4.1-5.3); Red Cell Distribution Width 15.9 % (12.1-15.1)
[2022-08-30 09:33] LABS: Alanine Aminotransferase 6 U/L (0-41); Alkaline Phosphatase 48 U/L (40-130); Anion Gap 16.6 (5-19); Aspartate Amino Transferase 12 U/L (0-40); Blood Urea Nitrogen 14 mg/dL (8-23); Calcium 9.6 mg/dL (8.5-10.5); Carbon Dioxide 24 mmol/L (22-29); Chloride 102 mmol/L (98-107); Glucose 143 mg/dL (65-115); Osmolality Calculated 291 mOsm/kg (285-295); Potassium 3.6 mmol/L (3.5-5.1); Sodium 139 mmol/L (136-145); Total Bilirubin 0.6 mg/dL (0.15-1.2)
[2022-08-30 10:11] LABS: Platelet Count 24 10^3/cmm (130-400)
[2022-08-30 10:12] LABS: Neutrophils # 0.55 10^3/uL (1.8-7.7); Slide Review Slide Review Perform
[2022-09-02] VITALS (10 sets, daily range): BP systolic 107–127; BP diastolic 57–71; PULSE 69–76; RESP 16–18; TEMP 36.6–37.1; O2SAT 16–99
[2022-09-02] MEDS: acetaminophen 325 mg Tablet 650 MG PO (08:16)
[2022-09-02] MEDS: sodium chloride 0.9% 250 ML IV (08:17)
[2022-09-02] MEDS: diphenhydrAMINE 25 mg Capsule PO (08:17)
[2022-09-02 08:24] LABS: Hemoglobin 7.3 g/dL (11.7-16.6); Mean Corpuscular HGB Conc 33.2 g/dL (30.0-36.0); Mean Corpuscular Hemoglobin 34.1 pg (28.0-34.0); Mean Corpuscular Volume 102.8 fl (80-94); Mean Platelet Volume 10.1 fL (7.4-10.4); Platelet Count 33 10^3/cmm (130-400); Red Blood Count 2.14 10^6/uL (4.1-5.3); Red Cell Distribution Width 15.8 % (12.1-15.1)
[2022-09-02 08:49] LABS: Slide Review Slide Review Perform
[2022-09-02 08:51] LABS: Absolute Segmented Neutrophil 0.4 10/cmm (1.6-7.1); Segmented Neutrophils 56 %; Total Cells Counted 50 (0-100)
[2022-09-02 08:52] LABS: Blastocytes 4 % (0-0); Eosinophils 0 %; Lymphocytes 38 %; Lymphocytes Absolute 0.3 10^3/cmm (1.2-3.4); Platelet Estimate Decreased (Normal)
[2022-09-02 08:53] LABS: Absolute Neutrophil 0.4 10^3/cmm (1.4-6.5)
[2022-09-02 08:54] LABS: Anisocytosis 1+; Macrocytosis Trace; Ovalocytes 1+; Poikilocytosis 1+
[2022-09-02 08:55] LABS: White Blood Count 0.8 10^3/uL (4.0-10.0)
[2022-09-02] MEDS: FUROsemide 10 mg/mL SDV 2mL 20 MG IVP (10:49)
[2022-09-05 09:20] VITALS: BP 117/67; PULSE 71; RESP 16; TEMP 36.8; O2SAT 95
[2022-09-05 09:38] LABS: Eosinophils % 1.8 %; Hematocrit 25.8 % (42.0-52.0); Hemoglobin 8.7 g/dL (11.7-16.6); Lymphocytes # 0.3 10^3/uL (0.8-4.8); Lymphocytes % 49.1 %; Mean Corpuscular HGB Conc 33.7 g/dL (30.0-36.0); Mean Corpuscular Hemoglobin 33.3 pg (28.0-34.0); Mean Corpuscular Volume 98.9 fl (80-94); Mean Platelet Volume 12.1 fL (7.4-10.4); Monocytes # 0.1 10^3/uL (0.2-0.9); Monocytes % 10.5 %; Neutrophils % 35.1 %; Nucleated Red Blood Cells % 0 %; Platelet Count 49 10^3/cmm (130-400); Red Blood Count 2.61 10^6/uL (4.1-5.3); Red Cell Distribution Width 17.6 % (12.1-15.1)
[2022-09-05 10:06] LABS: Slide Review Slide Review Perform
[2022-09-05 10:09] LABS: White Blood Count 0.6 10^3/uL (4.0-10.0)
--- NOTE | 2022-09-05 14:28 | PC.NURSE ---
CBC results reviewed by WAYLON Claudio copy given to patient with written instructions to continue Cipro twice daily until his next lab draw. Patient's verbalized understanding.
[2022-09-09 09:04] VITALS: BP 106/67; PULSE 81; RESP 16; TEMP 35.9; O2SAT 97
[2022-09-09 09:29] LABS: Hematocrit 26.9 % (42.0-52.0); Hemoglobin 8.9 g/dL (11.7-16.6); Mean Corpuscular HGB Conc 33.1 g/dL (30.0-36.0); Mean Corpuscular Hemoglobin 33.1 pg (28.0-34.0); Mean Platelet Volume 9.8 fL (7.4-10.4); Platelet Count 114 10^3/cmm (130-400); Red Blood Count 2.69 10^6/uL (4.1-5.3); Red Cell Distribution Width 17.1 % (12.1-15.1)
[2022-09-09 09:45] LABS: Alanine Aminotransferase 18 U/L (0-41); Albumin Level 3.6 g/dL (3.5-5.2); Alkaline Phosphatase 56 U/L (40-130); Anion Gap 19.4 (5-19); Aspartate Amino Transferase 28 U/L (0-40); Blood Urea Nitrogen 21 mg/dL (8-23); Calcium 9.1 mg/dL (8.5-10.5); Carbon Dioxide 23 mmol/L (22-29); Chloride 101 mmol/L (98-107); Globulin 3.5 g/dL (1.3-4.6); Glucose 183 mg/dL (65-115); Lactate Dehydrogenase 343 U/L (135-225); Osmolality Calculated 298 mOsm/kg (285-295); Potassium 3.4 mmol/L (3.5-5.1); Sodium 140 mmol/L (136-145); Total Bilirubin 0.4 mg/dL (0.15-1.2); Total Protein 7.1 g/dL (6.6-8.7)
[2022-09-09 10:45] LABS: Slide Review Slide Review Perform
[2022-09-09 10:47] LABS: Absolute Segmented Neutrophil 0.2 10/cmm (1.6-7.1); Eosinophils 0 %; Lymphocytes 65 %; Lymphocytes Absolute 0.5 10^3/cmm (1.2-3.4); Segmented Neutrophils 23 %; Total Cells Counted 100 (0-100)
[2022-09-09 10:49] LABS: Platelet Estimate Normal (Normal)
[2022-09-09 10:51] LABS: White Blood Count 0.7 10^3/uL (4.0-10.0)
[2022-09-09 10:52] LABS: Absolute Neutrophil 0.2 10^3/cmm (1.4-6.5); Blastocytes 5 % (0-0)
[2022-09-09 10:53] LABS: Anisocytosis 1+; Poikilocytosis 1+
== END 2022-09-13 23:59 | disposition home or self-care (01) ==
PROVIDERS: Internal Medicine Hematology & Oncology; Nurse Practitioner Family; PCP Family Medicine; Visit Provider Internal Medicine Medical Oncology
DX: Z53.9 Procedure and treatment not carried out, unspecified reason
CPT/HCPCS: 36415; 36430; 36591; 80053; 83615; 83735; 85007; 85025; 86850; 86900; 86920; 96372; 96374; 96401; 96402; 99214; J1940; J7050; J9025; P9040; Q0162